=== PATIENT | male | born 1955 ===

== ENCOUNTER 2024-04-02 13:04 | Outpatient (AMB) | payer MEDICARE, MEDICAID, SELFPAY ==
--- NOTE | 2024-04-02 13:08 | MHC.PC.OV ---
Vital Signs 04/02/24 13:20 Height 5 ft 8.58 in Weight 253 lb 8 oz BMI 37.9 BP 138/78 Blood Pressure Location Lt brachial Position Sitting Respiration 16 Pulse 79 Pulse Source Pulse Oximeter Temp 98.4 F Temp Source Oral Pulse Oximetry (%) 96 Oxygen Delivery Method Room Air Intake Visit Reasons: [employer]PER[employer]OR - Prostate med f/u Intake Note: New patient visit. Has been short of breath. Hematologist Oncologist Required: No Allergies No Known Allergies Allergy (Verified 04/02/24 13:14) Medication List - Last Reconciled 04/02/24 by Catherine Nolasco PA-C atorvastatin 40 mg PO DAILY hydrochlorothiazide 12.5 mg PO DAILY omeprazole 40 mg PO DAILY tamsulosin 0.4 mg PO DAILY Tobacco use date assessed: 04/02/24 Fall risk assessment: No Falls in past year Last assessed Fall Risk: 04/02/24 Dental Screening Dental Screen Date: 04/02/24 Did you have a dental visit in the last 12 months?: Yes Did you have a dental problem in the last 6 months where you did not have access to dental care?: Yes Was dental information given to patient?: 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 Moved here last year from [place]. CV: Blood pressure today in the office is 138/78. Is on hydrochlorothiazide 12.5 mg daily. Cholesterol he states it is controlled with 40 mg of atorvastatin. Does not know what his last LDL was. Uro: On Flomax 0.4 mg nightly. Control symptoms Psych: He does not like taking the full dose of trazodone as it makes him feel funny . GI: GERD is usually controlled with the omeprazole 40 mg. It is not believe he has ever had an endoscopy. Does get breakthrough symptoms at times. He states that at 1 point about 10 years ago he was told he had a problem with his liver and sister thinks it was related to hep C. he thinks he completed treatments. 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 He lived with his mother in [place] until recently when she last year. He is now living with his sister. Colonoscopy: sister thinks overdue PSA: overdue [facility] Medical History (Updated 04/02/24 @ 13:41 by Catherine Nolasco PA-C) Depression Anxiety Prostate troubles Liver disease Family History (Updated 04/02/24 @ 13:27 by Wendy Sebastian CMA) Mother HTN (hypertension) Mother High cholesterol Cardiovascular disease Other FH: mental illness Social History (Updated 04/02/24 @ 13:19 by Wendy Sebastian CMA) Housing: Apartment Patient Tobacco Use Status: Former Tobacco user Years Smoked: 19 e-Cigarette/Vaping Use: Never Used Second Hand Smoke Exposure: No service: No Current occupational status: disabled Cognitive needs: No Hearing needs: No Vision needs: Yes (glasses) Questionnaire PHQ-9 Over the last 2 weeks, how often have you been bothered by any of the following problems? 1. Little interest or pleasure in doing things: more than half the days 2. Feeling down, depressed, or hopeless: several days 3. Trouble falling or staying asleep, or sleeping too much: more than half the days 4. Feeling tired or having little energy: several days 5. Poor appetite or overeating: several days 6. Feeling bad about yourself - or that you are a failure or have let yourself or your family down: not at all 7. Trouble concentrating on things, such as reading the newspaper or watching television: not at all 8. Moving or speaking so slowly that other people could have noticed. Or the opposite - being so fidgety or restless that you have been moving around a lot more than usual: not at all 9. Thoughts that you would be better off or of hurting yourself in some way: not at all Total score: 7 Depression Screening Interpretation: Positive Depression Screening Follow-up: In treatment and Change in Medication Depression Screening Done: Yes 20212 - PHQ-9 Billing: Yes Source: Developed by Drs. Tye Larsen, Maria Dolores Singleton, Lester Caballero and colleagues, with an educational uriel from [employer]. Thrive Questionnaire Date Thrive assessed: 03/31/24 I am a: Parent/Caregiver What is your living situation today?: I have a steady place to live Within the past 12 months, did the food you bought not last and you didn't have the money to get more?: Never true Within the past 12 months, did you worry whether your food would run out before you got money to buy more?: Never true Do you have trouble paying for medicines?: I choose not to answer this question Do you have trouble getting transportation to medical appointments?: No Do you have trouble paying your heating and electricity bill?: I choose not to answer this question Do you have trouble taking care of your child, family member or friend?: I choose not to answer this question Do you have trouble with day-to-day activities such as bathing, preparing meals, shopping, managing finances, etc.?: Yes Are you currently unemployed and looking for a job?: I choose not to answer this question Are you interested in more education?: No Please select the resources that you would like help with: Housing/Long Term Currently or been in a relationship where the following occur: No concerns reported THRIVE Score: 0 AUDIT C Alcohol Use Questionnaire (AUDIT-C) 1. How often do you have a drink containing alcohol?: Monthly or less 2. How many drinks containing alcohol do you have on a typical day when you are drinking?: 1 or 2 3. How often do you have six or more drinks on one occasion?: Never Total Score: 1 CARLOS ALBERTO-7 AMB Questionnaire CARLOS ALBERTO-7 Date CARLOS ALBERTO - 7 assessed: 04/02/24 Feeling nervous, anxious, or on edge: 0 = Not at all Not being able to stop or control worryin = More than half the days Worrying too much about different things: 2 = More than half the days Trouble relaxin = Not at all Being so restless that it is hard to sit still: 0 = Not at all Becoming easily annoyed or irritable: 2 = More than half the days Feeling afraid as if something awful might happen: 0 = Not at all Total CARLOS ALBERTO-7 score (0-4 normal; 5-9 mild; 10-14 moderate; 15-21 severe): 6 Source: Developed by Drs. Tye Larsen, Maria Dolores Singleton, Lester Caballero and colleagues, with an educational uriel from [employer] CARLOS ALBERTO-7 Assessment Billing CARLOS ALBERTO-7 Assessment Tool: CARLOS ALBERTO-7 Assessment 50174 Physical exam (Primary Care) Vital Signs: Last Vital Signs Temp 98.4 F 10/10/24 13:20 Pulse 79 04/02/24 13:20 Resp 16 04/02/24 13:20 BP 138/78 04/02/24 13:20 Pulse Ox 96 04/02/24 13:20 Oxygen Delivery Method Room Air 04/02/24 13:20 BMI result Body Mass Index 37.9 Tobacco/Smoking Status: Tobacco use Status Tobacco use date assessed 04/02/24 04/02/24 13:11 Patient Tobacco Use Status Former Tobacco user 04/02/24 13:29 e-Cigarette/Vaping Use Never Used 04/02/24 13:19 PHQ-9: PHQ-9 Score PHQ-9: Total score 7 04/02/24 13:29 Depression Screening Interpretation: Positive Depression Screening Follow-up: In treatment and Change in Medication Thrive Assessment: Date of Thrive Assessment Date Thrive assessed 03/31/24 04/02/24 13:11 Currently or been in a relationship where the following occur: No concerns reported Const Orientation/consciousness: patient oriented x3 HENMT Ears: hearing grossly normal bilaterally Neck Thyroid: Thyroid normal Lymphatic: no lymphadenopathy noted Resp Auscultation: clear to auscultation bilaterally Cardio Rate: regular rate Rhythm: regular rhythm Heart sounds: S1 normal heart sound present and S2 normal heart sound present GI Inspection: Yes normal to inspection Palpation (GI): Soft to palpation and Other GI palpation findings present (nontender, no cva tenderness) Auscultation: normoactive bowel sounds Rectal Exam - Male: Yes deferred Skin General skin exam: no rashes or lesions noted Neuro General: patient oriented x3, gait normal and no focal motor deficits Coding Level of Care Code New Pt Level 4 (83222) Complex EM visit Add On G2211 Diagnoses Hypertension I10 Hyperlipidemia E78.5 Insomnia G47.00 BPH (benign prostatic hyperplasia) N40.0 GERD (gastroesophageal reflux disease) K21.9 Additional Codes CARLOS ALBERTO-7 Assessment Billing - CARLOS ALBERTO-7 Assessment Tool: CARLOS ALBERTO-7 Assessment 41137 ([id number]) Assessment & Plan Assessment & Plan (1) Hypertension: Code(s): I10 - Essential (primary) hypertension Category: Medical Plan: Refilled hydrochlorothiazide. Has been inconsistent with the medication as he was running out of the pills. (2) Hyperlipidemia: Code(s): E78.5 - Hyperlipidemia, unspecified Category: Medical Plan: Continue atorvastatin. Refilled today. LFTs and lipids ordered (3) Insomnia: Code(s): G47.00 - Insomnia, unspecified Category: Medical Plan: We will reduce dose trazodone. Short term follow up. (4) BPH (benign prostatic hyperplasia): Code(s): N40.0 - Benign prostatic hyperplasia without lower urinary tract symptoms Category: Medical Plan: Flomax ordered. (5) GERD (gastroesophageal reflux disease): Code(s): K21.9 - Gastro-esophageal reflux disease without esophagitis Category: Medical Plan: Continue omeprazole. Referral to GI. Plan They did sign for records today. We will review upon receiving. Orders: Orders Hemoglobin A1c Today E78.5 - Hyperlipidemia, unspecified, G47.00 - Insomnia, unspecified, I10 - Essential (primary) hypertension, N40.0 - Benign prostatic hyperplasia without lower urinary tract symptoms, Z86.19 - Personal history of other infectious and parasitic diseases TSH reflex Free T4 Today E78.5 - Hyperlipidemia, unspecified, G47.00 - Insomnia, unspecified, I10 - Essential (primary) hypertension, N40.0 - Benign prostatic hyperplasia without lower urinary tract symptoms, Z86.19 - Personal history of other infectious and parasitic diseases UA CC w/rflx Micro + Cult Today E78.5 - Hyperlipidemia, unspecified, G47.00 - Insomnia, unspecified, I10 - Essential (primary) hypertension, N40.0 - Benign prostatic hyperplasia without lower urinary tract symptoms, Z13.220 - Encounter for screening for lipoid disorders, Z86.19 - Personal history of other infectious and parasitic diseases Lipid Panel Today E78.5 - Hyperlipidemia, unspecified, G47.00 - Insomnia, unspecified, I10 - Essential (primary) hypertension, N40.0 - Benign prostatic hyperplasia without lower urinary tract symptoms, Z86.19 - Personal history of other infectious and parasitic diseases Prostate Specific Antigen Scr Today E78.5 - Hyperlipidemia, unspecified, G47.00 - Insomnia, unspecified, I10 - Essential (primary) hypertension, N40.0 - Benign prostatic hyperplasia without lower urinary tract symptoms, Z01.89 - Encounter for other specified special examinations, Z86.19 - Personal history of other infectious and parasitic diseases Complete Blood Count Auto Diff Today E78.5 - Hyperlipidemia, unspecified, G47.00 - Insomnia, unspecified, I10 - Essential (primary) hypertension, N40.0 - Benign prostatic hyperplasia without lower urinary tract symptoms, Z86.19 - Personal history of other infectious and parasitic diseases Comprehensive [place]. Panel Fast Today E78.5 - Hyperlipidemia, unspecified, G47.00 - Insomnia, unspecified, I10 - Essential (primary) hypertension, N40.0 - Benign prostatic hyperplasia without lower urinary tract symptoms, Z86.19 - Personal history of other infectious and parasitic diseases Referrals Gastroenterology Referral K21.9 - Gastro-esophageal reflux disease without esophagitis, Z12.11 - Encounter for screening for malignant neoplasm of colon, Z86.19 - Personal history of other infectious and parasitic diseases Medications: New atorvastatin 40 mg PO DAILY 90 tabs 3RF hydrochlorothiazide 12.5 mg PO DAILY 90 caps 3RF omeprazole 40 mg PO DAILY 90 caps 3RF tamsulosin 0.4 mg PO DAILY 90 caps 2RF trazodone 50 mg PO BEDTIME 90 tabs 0RF
[2024-04-02 13:20] VITALS: BP 138/78; PULSE 79; RESP 16; TEMP 36.9; O2SAT 96; BMI 37.9
== END 2024-04-02 13:48 | disposition home or self-care (01) ==
LOC: HO.HMCFM 13:04
PROVIDERS: PCP Physician Assistant; Visit Provider Physician Assistant
DX: I10 Essential (primary) hypertension (principal); E78.5 Hyperlipidemia, unspecified; G47.00 Insomnia, unspecified; N40.0 Benign prostatic hyperplasia without lower urinary tract symptoms; K21.9 Gastro-esophageal reflux disease without esophagitis

== ENCOUNTER → 2024-04-02 13:04 | Outpatient (BNVA) | payer MEDICARE, MEDICAID, SELFPAY | PROVIDERS: Visit Provider Physician Assistant | DX: I10 Essential (primary) hypertension (principal); N40.0 Benign prostatic hyperplasia without lower urinary tract symptoms; E78.5 Hyperlipidemia, unspecified; K21.9 Gastro-esophageal reflux disease without esophagitis; G47.00 Insomnia, unspecified | CPT/HCPCS: 96127; 99202 ==

== ENCOUNTER 2024-06-02 09:57 | Outpatient (REF) | payer MEDICARE, MEDICAID, SELFPAY ==
[2024-06-02 11:00] LABS: MANUAL DIFF FLAG NO
[2024-06-02 11:05] LABS: Basophils Percent Auto 0.1 % (0-2); Eosinophils Absolute Auto 0.1 X10*3/uL (0.0-0.4); Eosinophils Percent Auto 1.7 % (0-4); Hematocrit 36.9 % (42.0-52.0); Hemoglobin 11.9 g/dl (14.0-18.0); Imm Gran Abs Auto 0.01 X10*3/uL (0.00-0.03); Imm Gran Pct Auto 0.1 % (0.0-0.4); Lymphocytes Absolute Auto 2.8 X10*3/uL (1.2-4.9); Lymphocytes Percent Auto 38.8 % (20-40); Mean Corpuscular HGB Conc 32.2 g/dl (31.0-36.0); Mean Corpuscular Hemoglobin 26.9 pg (27.0-33.0); Mean Corpuscular Volume 83.5 fL (80.0-98.0); Mean Platelet Volume 10.1 fL (9.4-12.4); Monocytes Absolute Auto 0.5 X10*3/uL (0.1-1.2); Monocytes Percent Auto 7.1 % (2-11); Neutrophils Absolute Auto 3.7 x10*3/uL (2.0-8.3); Neutrophils Percent Auto 52.2 % (45-73); Platelet Count 194 X10*3/uL (160-400); Red Blood Count 4.42 X10*6/uL (4.60-5.80); Red Cell Distribution Width 14.6 % (11.0-16.0); White Blood Count 7.2 X10*3/uL (4.8-10.8)
[2024-06-02 11:08] LABS: Appearance Urine Clear; Color Urine Yellow; Glucose Urine UA Negative (Negative); Leukocyte Esterase Urine Negative (Negative); Nitrite Urine Negative (Negative); PH 5.5 (5.0-9.0); Specific Gravity - Urine 1.025 (1.005-1.025); Urine Blood Negative (Negative); Urine Ketones Negative (Negative); Urine Protein Trace mg/dL (Neg-Trace)
[2024-06-02 11:14] LABS: Estimated Average Glucose 143 mg/dL; Hemoglobin A1C 144.5471 umol/L; Hemoglobin A1c % 6.6 % (<6.0)
[2024-06-02 11:31] LABS: Alanine Aminotransferase 20 U/L (0-40); Alkaline Phosphatase 79 U/L (39-117); Anion Gap 12 (12-20); Aspartate Amino Transferase 21 U/L (5-37); Bilirubin Total 0.3 mg/dL (0.0-1.0); Blood Urea Nitrogen 18 mg/dL (9-16); Calcium 9.3 mg/dL (8.4-10.2); Carbon Dioxide 31 mmol/L (22-29); Chloride 101 mmol/L (96-108); Cholesterol 173 mg/dL (<200); Estimated Glomerular Filt Rate > 60; Glucose Fasting 105 mg/dL (60-99); HDL Cholesterol 30 mg/dL (>40); LDL Cholesterol Calculated 117 mg/dL (<100); Potassium 3.4 mmol/L (3.3-5.1); Sodium 141 mmol/L (135-145); Total Protein 8.5 g/dL (6.5-8.0); Triglycerides 134 mg/dL (<150)
[2024-06-02 11:34] LABS: TSH reflex Free T4 3.28 uIU/mL (0.32-4.0)
[2024-06-02 12:04] LABS: Prostate Specific Antigen Scr 0.54 ng/mL (<0.05-4.0)
== END 2024-06-02 09:58 | disposition home or self-care (01) ==
LOC: HO.10HDL 09:57
PROVIDERS: Visit Provider Physician Assistant
DX: Z13.220 Encounter for screening for lipoid disorders (principal); Z12.5 Encounter for screening for malignant neoplasm of prostate; Z13.1 Encounter for screening for diabetes mellitus; I10 Essential (primary) hypertension; E78.5 Hyperlipidemia, unspecified; G47.00 Insomnia, unspecified; N40.0 Benign prostatic hyperplasia without lower urinary tract symptoms; Z86.19 Personal history of other infectious and parasitic diseases
CPT/HCPCS: 36415; 80053; 80061; 81003; 83036; 84153; 84443; 85025

== ENCOUNTER 2024-06-04 14:59 | Outpatient (AMB) | payer MEDICARE, MEDICAID, SELFPAY ==
--- NOTE | 2024-06-04 15:12 | A.OFFPC_ITS ---
Vital Signs 06/04/24 15:19 06/04/24 15:23 Height 5 ft 8.58 in Weight 252 lb 6 oz BMI 37.7 BP 154/68 H 144/74 H Blood Pressure Location Lt brachial Lt brachial Position Sitting Sitting Pulse 98 Pulse Source Pulse Oximeter Pulse Oximetry (%) 98 Oxygen Delivery Method Room Air Intake Visit Reasons: 1 month fu // ricardo from 05/06 Intake Note: One month follow up Economic Historian Required: No Allergies No Known Allergies Allergy (Verified 06/04/24 15:19) Medication List - Last Reconciled 06/04/24 by Catherine Nolasco PA-C atorvastatin 40 mg PO DAILY omeprazole 40 mg PO DAILY tamsulosin 0.4 mg PO DAILY trazodone 50 mg PO BEDTIME Tobacco use date assessed: 04/02/24 Dental Screening Dental Screen Date: 04/02/24 HPI 1 month fu // ricardo from 05/06 HPI Details Patient is a 68-year-old male with a significant past medical history of intellectual delay, hypertension, hyperlipidemia, GERD, insomnia, depression with anxiety, history of hep C about 10 years ago and BPH presenting today for a follow up. Moved here last year from [place]. CV: Blood pressure today in the office is 144/78. Is on hydrochlorothiazide 12.5 mg daily. Cholesterol he states it is controlled with 40 mg of atorvastatin. His last LDL was a little elevated and states he was not fasting. He gets fatigued with walking short distances with chest pressure, and sob. He states he thinks he had a stress test in the past base not really sure His sister is here today with him and states that he definitely has sleep apnea. She has noticed some witnessed apneic events. He states that he remembers having a history of this and he used to use a mask when he was in [place] but can not tell me when this was. Endo: His A1c just came back at 6.6. He does feel thirsty a lot. He over eats. His nephew has type 1 diabetes and was just diagnosed at the age of 30. He is not sure how he feels about taking medication or picking his finger. Uro: On Flomax 0.4 mg nightly. Control symptoms Psych: Uses trazodone p.r.n. GI: GERD is usually controlled with the omeprazole 40 mg. It is not believe he has ever had an endoscopy. Does get breakthrough symptoms at times. He states that at 1 point about 10 years ago he was told he had a problem with his liver and sister thinks it was related to hep C. he thinks he completed treatments. 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 He lived with his mother in [place] until recently when she last year. He is now living with his sister. Colonoscopy: sister thinks overdue PSA: o up-to-date [facility] Medical History (Updated 06/04/24 @ 15:49 by Catherine Nolasco PA-C) Depression Anxiety Prostate troubles Liver disease Family History (Updated 04/02/24 @ 13:27 by Wendy Sebastian CMA) Mother HTN (hypertension) Mother High cholesterol Cardiovascular disease Other FH: mental illness Social History (Updated 04/02/24 @ 13:19 by Wendy Sebastian CMA) Housing: Apartment Patient Tobacco Use Status: Former Tobacco user Years Smoked: 19 e-Cigarette/Vaping Use: Never Used Second Hand Smoke Exposure: No service: No Current occupational status: disabled Cognitive needs: No Hearing needs: No Vision needs: Yes (glasses) Questionnaire PHQ-9 Over the last 2 weeks, how often have you been bothered by any of the following problems? 1. Little interest or pleasure in doing things: not at all 2. Feeling down, depressed, or hopeless: not at all 3. Trouble falling or staying asleep, or sleeping too much: not at all 4. Feeling tired or having little energy: not at all 5. Poor appetite or overeating: not at all 6. Feeling bad about yourself - or that you are a failure or have let yourself or your family down: not at all 7. Trouble concentrating on things, such as reading the newspaper or watching television: not at all 8. Moving or speaking so slowly that other people could have noticed. Or the opposite - being so fidgety or restless that you have been moving around a lot more than usual: several days 9. Thoughts that you would be better off or of hurting yourself in some way: not at all Total score: 1 Source: Developed by Drs. Tye Larsen, Maria Dolores Singleton, Lester Caballero and colleagues, with an educational uriel from [employer]. Thrive Questionnaire Date Thrive assessed: 03/31/24 I am a: Parent/Caregiver What is your living situation today?: I have a steady place to live Within the past 12 months, did the food you bought not last and you didn't have the money to get more?: Never true Within the past 12 months, did you worry whether your food would run out before you got money to buy more?: Never true Do you have trouble paying for medicines?: I choose not to answer this question Do you have trouble getting transportation to medical appointments?: No Do you have trouble paying your heating and electricity bill?: I choose not to answer this question Do you have trouble taking care of your child, family member or friend?: I choose not to answer this question Do you have trouble with day-to-day activities such as bathing, preparing meals, shopping, managing finances, etc.?: Yes Are you currently unemployed and looking for a job?: I choose not to answer this question Are you interested in more education?: No Please select the resources that you would like help with: Housing/Retirement Currently or been in a relationship where the following occur: No concerns reported THRIVE Score: 0 CARLOS ALBERTO-7 AMB Questionnaire CARLOS ALBERTO-7 Date CARLOS ALBERTO - 7 assessed: 04/02/24 Feeling nervous, anxious, or on edge: 0 = Not at all Not being able to stop or control worryin = Not at all Worrying too much about different things: 0 = Not at all Trouble relaxin = Not at all Being so restless that it is hard to sit still: 0 = Not at all Becoming easily annoyed or irritable: 0 = Not at all Feeling afraid as if something awful might happen: 0 = Not at all Total CARLOS ALBERTO-7 score (0-4 normal; 5-9 mild; 10-14 moderate; 15-21 severe): 0 Source: Developed by Drs. Tye Larsen, Maria Dolores Singleton, Lester Caballero and colleagues, with an educational uriel from [employer]. Physical exam (Primary Care) Vital Signs: Last Vital Signs Pulse 98 06/04/24 15:19 BP 144/74 H 06/04/24 15:23 Pulse Ox 98 06/04/24 15:19 Oxygen Delivery Method Room Air 06/04/24 15:19 BMI result Body Mass Index 37.7 Tobacco/Smoking Status: Tobacco use Status Tobacco use date assessed 04/02/24 06/04/24 15:15 Patient Tobacco Use Status Former Tobacco user 06/04/24 15:15 e-Cigarette/Vaping Use Never Used 06/04/24 15:15 PHQ-9: PHQ-9 Score PHQ-9: Total score 1 06/04/24 15:24 Thrive Assessment: Date of Thrive Assessment Date Thrive assessed 03/31/24 06/04/24 15:15 Currently or been in a relationship where the following occur: No concerns reported Const Orientation/consciousness: patient oriented x3 HENMT Ears: hearing grossly normal bilaterally Neck Thyroid: Thyroid normal Lymphatic: no lymphadenopathy noted Resp Auscultation: clear to auscultation bilaterally Cardio Rate: regular rate Rhythm: regular rhythm Heart sounds: S1 normal heart sound present and S2 normal heart sound present GI Inspection: Yes normal to inspection Palpation (GI): Soft to palpation and Other GI palpation findings present (nontender, no cva tenderness) Auscultation: normoactive bowel sounds Rectal Exam - Male: Yes deferred Skin General skin exam: no rashes or lesions noted Neuro General: patient oriented x3, gait normal and no focal motor deficits Office Procedures EKG Details: EKG today in the office is normal sinus rhythm at a rate of 90 beats per minute with nonspecific STT wave abnormalities. No prior study to compare. EKG interpreted by myself and Dr. Walters. [id number], Complete Results Reviewed Results Reviewed: Laboratory Tests 06/02/24 10:02 WBC 7.2 RBC 4.42 L Hgb 11.9 L Hct 36.9 L Plt Count 194 Sodium 141 Potassium 3.4 Chloride 101 Carbon Dioxide 31 H Anion Gap 12 BUN 18 H Creatinine 1.02 Estimated GFR > 60 Hemoglobin A1c % 6.6 H AST 21 ALT 20 Triglycerides 134 Cholesterol 173 LDL Cholesterol, Calc 117 H HDL Cholesterol 30 L PSA Screen 0.54 TSH 3.28 Coding Level of Care Code Est Pt Level 5 (82245) Complex EM visit Add On G2211 Diagnoses Hypertension I10 Hyperlipidemia E78.5 Anemia D64.9 Newly diagnosed diabetes E11.9 DUGGAN (dyspnea on exertion) R06.09 ALIDA (obstructive sleep apnea) G47.33 CPT Codes EKG - CPT: [id number], Complete ([id number]) Assessment & Plan Assessment & Plan (1) Hypertension: Code(s): I10 - Essential (primary) hypertension Category: Medical Plan: Blood pressure is elevated with hydrochlorothiazide. We will discontinue this and try lisinopril as he is a newly diagnosed diabetic as well. I will have him follow up in a couple weeks of his blood pressure rechecked. We reviewed risks and benefits and adverse effects of this medication. (2) Hyperlipidemia: Code(s): E78.5 - Hyperlipidemia, unspecified Category: Medical Plan: Continue atorvastatin (3) Anemia: Code(s): D64.9 - Anemia, unspecified Category: Medical Plan: Labs ordered. We will follow up pending test results. He also was referred for a colonoscopy (4) Newly diagnosed diabetes: Code(s): E11.9 - Type 2 diabetes mellitus without complications Category: Medical Plan: Testing supplies ordered Labs ordered. Referral to diabetic Education Spent more than 1 hour in [id number] time today discussing the pathophysiology of diabetes and difference between type 1 and type 2 diabetes. Reviewed signs and symptoms of hyper and hypoglycemia that would require emergent medical treatment. We will hold off on providing medication at this point. At our follow up we will further discuss this. We also did discuss going on a medication like a GLP 1 to help with his over eating. (5) DUGGAN (dyspnea on exertion): Code(s): R06.09 - Other forms of dyspnea Category: Medical Plan: EKG listed above. Echo ordered, stress test ordered, and chest x-ray ordered. (6) ALIDA (obstructive sleep apnea): Code(s): G47.33 - Obstructive sleep apnea (adult) (pediatric) Category: Medical Plan: Sleep study ordered. Referral to sleep Medicine. Orders: Orders C Peptide Today D64.9 - Anemia, unspecified, E11.9 - Type 2 diabetes mellitus without complications, E78.5 - Hyperlipidemia, unspecified, I10 - Essential (primary) hypertension Glutamic acid decarboxylase Ab Today D64.9 - Anemia, unspecified, E11.9 - Type 2 diabetes mellitus without complications, E78.5 - Hyperlipidemia, unspecified, I10 - Essential (primary) hypertension Islet Cell Antibody Scrn/Titer Today D64.9 - Anemia, unspecified, E11.9 - Type 2 diabetes mellitus without complications, E78.5 - Hyperlipidemia, unspecified, I10 - Essential (primary) hypertension Vitamin B12 and Folate Today D64.9 - Anemia, unspecified, E11.9 - Type 2 diabetes mellitus without complications, E78.5 - Hyperlipidemia, unspecified, I10 - Essential (primary) hypertension AMB EKG-In Office Today R06.09 - Other forms of dyspnea RT home sleep study Today E11.9 - Type 2 diabetes mellitus without complications, E78.5 - Hyperlipidemia, unspecified, G47.00 - Insomnia, unspecified, I10 - Essential (primary) hypertension, R06.09 - Other forms of dyspnea, R06.81 - Apnea, not elsewhere classified IRON PROFILE Today D64.9 - Anemia, unspecified, E11.9 - Type 2 diabetes mellitus without complications, E78.5 - Hyperlipidemia, unspecified, I10 - E ssential (primary) hypertension Ferritin Today D64.9 - Anemia, unspecified, E11.9 - Type 2 diabetes mellitus without complications, E78.5 - Hyperlipidemia, unspecified, I10 - Essential (primary) hypertension Complete Blood Count Auto Diff Today D64.9 - Anemia, unspecified, E11.9 - Type 2 diabetes mellitus without complications, E78.5 - Hyperlipidemia, unspecified, I10 - Essential (primary) hypertension XR chest 2V Today E11.9 - Type 2 diabetes mellitus without complications, E78.5 - Hyperlipidemia, unspecified, I10 - Essential (primary) hypertension, R06.09 - Other forms of dyspnea CA echo transthoracic complete Today E11.9 - Type 2 diabetes mellitus without complications, E78.5 - Hyperlipidemia, unspecified, G47.00 - Insomnia, unspecified, I10 - Essential (primary) hypertension, R06.09 - Other forms of dyspnea CA stress test Today E11.9 - Type 2 diabetes mellitus without complications, E78.5 - Hyperlipidemia, unspecified, G47.00 - Insomnia, unspecified, I10 - Essential (primary) hypertension, R06.09 - Other forms of dyspnea Referrals Diabetes Education Referral E11.9 - Type 2 diabetes mellitus without complications Sleep Medicine Referral G47.33 - Obstructive sleep apnea (adult) (pediatric) Medications: New lisinopril 10 mg PO DAILY 90 tabs 2RF blood sugar diagnostic (FreeStyle Lite Strips) Use daily As directed to check blood glucose 100 ea 3RF E11.9 - Type 2 diabetes mellitus without complications blood-glucose meter (FreeStyle Lite Meter kit) Use daily As directed to check blood sugars 1 ea 0RF E11.22 - Type 2 diabetes mellitus with diabetic chronic kidney disease, E11.9 - Type 2 diabetes mellitus without complications, Z79.4 - skilled nursing (current) use of insulin lancets (FreeStyle Lancets) use daily as directed to check blood glucose 100 ea 3RF
[2024-06-04 15:19] VITALS: BP 154/68; PULSE 98; O2SAT 98; BMI 37.7
[2024-06-04 15:23] VITALS: BP 144/74
== END 2024-06-04 16:06 | disposition home or self-care (01) ==
PROVIDERS: PCP Physician Assistant; Visit Provider Physician Assistant
DX: I10 Essential (primary) hypertension (principal); E11.9 Type 2 diabetes mellitus without complications; E78.5 Hyperlipidemia, unspecified; D64.9 Anemia, unspecified; R06.09 Other forms of dyspnea; G47.33 Obstructive sleep apnea (adult) (pediatric)

== ENCOUNTER → 2024-06-04 14:59 | Outpatient (BNVA) | payer MEDICARE, MEDICAID, SELFPAY | PROVIDERS: PCP Physician Assistant; Visit Provider Physician Assistant | DX: I10 Essential (primary) hypertension (principal); E78.5 Hyperlipidemia, unspecified; E11.9 Type 2 diabetes mellitus without complications; D64.9 Anemia, unspecified; R06.09 Other forms of dyspnea; G47.33 Obstructive sleep apnea (adult) (pediatric) | CPT/HCPCS: 93005; 96127; 99212 ==

== ENCOUNTER 2024-06-10 10:38 | Outpatient (AMB) | payer MEDICARE, MEDICAID, SELFPAY ==
--- NOTE | 2024-06-10 10:45 | A.OFFVIS_ITS ---
Vital Signs 06/10/24 10:47 Height 5 ft 8.58 in Weight 252 lb 8 oz BMI 37.7 BP 148/82 H Blood Pressure Location Rt brachial Position Sitting Pulse 92 Pulse Source Pulse Oximeter Pulse Oximetry (%) 94 Oxygen Delivery Method Room Air Intake Visit Reasons: 06/05 LVM+Let INP-ALIDA Intake Note: Pt presents to the office today for a new patient visit for ALIDA. Allergies No Known Allergies Allergy (Verified 06/10/24 10:45) HPI Comments Details: 68 year old male referred to us by PCP for evaluation of sleep apnea. He is accompanied by his sister and [employer] ADVANCED OPERATOR, he is on disability d/t Intellectual Disabilities. He has excessive daytime fatigue, yawning, falls asleep in front of the TV, diffiuclty falling asleep at night, stays awake all hours of the night. Bedtime is at midgnight and sometiems at 3-4am. He continues to snore very loudly, wakes himself up as he is gasping for air. He makes wheezing and grunting noises during wakefulness, when breathing normally and has difficulty with breathing when sitting up and laying down is followed by PCP. His memory is pretty good, diet is poor, eats many types of sweets or snacks, during the day and the night. We will have to repeat his A1c, per PCP. Hypertension is well managed on Lisinopril 10mg PO daily. Vision checked on Mar 2024, he wears glasses, has Exotropia L. eye >R. Dizziness when he does not take his medication, and falls, difficulty walking, tends to bump into many things. Mood is anxious, concerned, fearful since his mom , he thinks he will also in his sleep. He has A/V Hallucinations, sister is not concerned. Does not smoke, alcohol on occasions. [facility] Medical History (Updated 06/10/24 @ 12:08 by Essence Barros PA-C) Depression Anxiety Prostate troubles Liver disease Family History Mother HTN (hypertension) Mother High cholesterol Cardiovascular disease Other FH: mental illness Social History Housing: Apartment Patient Tobacco Use Status: Former Tobacco user Years Smoked: 19 e-Cigarette/Vaping Use: Never Used Second Hand Smoke Exposure: No service: No Current occupational status: disabled Cognitive needs: No Hearing needs: No Vision needs: Yes (glasses) Review of Systems Const All systems reviewed & are unremarkable except as noted in HPI and below Physical Exam Vital Signs: Last Vital Signs Pulse 92 06/10/24 10:47 BP 148/82 H 06/10/24 10:47 Pulse Ox 94 06/10/24 10:47 Oxygen Delivery Method Room Air 06/10/24 10:47 BMI result Body Mass Index 37.7 Const General: cooperative, comfortable and no acute distress Nutritional Appearance: average body habitus and obese (BMI 38) Orientation/consciousness: patient oriented x3 HEENT Face and sinus: Yes face symmetric Mouth: tongue normal Teeth and gingiva: other ([place] Score of 4 ) Eyes Alignment and Position: position abnormal (R. eye / L. eye exotropia ) Pupils: Equal, round and reactive pupils present Neck Neck: Yes full ROM and Yes supple Resp Effort & Inspection: normal respiratory effort, able to speak in complete sentences, audible wheezes and grunting Neuro General: patient oriented x3 and moves all extremities Cranial nerves: Yes CN's II-XII intact bilaterally, Yes Equal, round and reactive pupils present, Yes Normal accommodation reflex present, Yes Bilaterally intact EOM present, Yes Normal facial strength present, Yes Midline tongue present, Yes Ability to bilaterally rotate head present and Yes Ability to bilaterally elevate shoulders present Motor exam (neuro): 5/5 motor strength present throughout and Normal motor muscle tone present throughout Deep tendon reflexes (DTR's): Right triceps reflex intensity grade: 2+, Left triceps reflex intensity grade: 2+, Rt Biceps (C5, C6): 2+, Left biceps reflex intensity grade: 2+, Right brachioradialis reflex intensity grade: 2+, Left brachioradialis reflex intensity grade: 2+, Right patellar reflex intensity grade: 2+ and Left patellar reflex intensity grade: 2+ Coordination: [id number] test normal and rapid alternating movements of the distal upper extremity normal Psych Appearance: well kempt Speech and movement: Normal speech and movement present and Restless speech present Affect: Anxious affect present Attitude: cooperative Thought process: Impoverished thought process present Thought content: Normal thought content present Insight: Fair insight present (Psych) Judgement: Fair judgement present (Psych) Results Reviewed Results Reviewed: PCP Internal Medicine Note Assessment & Plan Assessment & Plan (1) History of difficulty sleeping: Code(s): Z72.821 - Inadequate sleep hygiene Category: Medical (2) DUGGAN (dyspnea on exertion): Code(s): R06.09 - Other forms of dyspnea Category: Medical (3) Insomnia: Code(s): G47.00 - Insomnia, unspecified Category: Medical Qualifiers: Insomnia type: unspecified Qualified Code(s): G47.00 - Insomnia, unspecified (4) Hypertension: Code(s): I10 - Essential (primary) hypertension Category: Medical Plan Will send him to complete Home Sleep Study and evaluate for Sleep Apnea. Patient Education: Diabetes will monitor, encourage him to eat more fruits and vegetables to help with A1c. Look into DASH Diet, number one modifiable risk in Cardiovascular disease is Hypertension, good BP controll is arora. Follow up with Sleep and Neuro in 3 months once you have completed the HST, we will take next steps to monitor with CPAP, as needed. Orders: Orders RT home sleep study Today I10 - Essential (primary) hypertension, R06.09 - Other forms of dyspnea, Z72.821 - Inadequate sleep hygiene Coding Level of Care Code New Pt Level 3 (06798) Diagnoses History of difficulty sleeping Z72.821 DUGGAN (dyspnea on exertion) R06.09 Insomnia, unspecified type G47.00 Insomnia type: unspecified Hypertension I10 Time Spent (min) 30 Comment Evaluation of sleep apnea Sleep Questionnaire Difficulty falling asleep: Yes Difficulty staying asleep?: No Number of arousals: 1x Snoring: Yes (loud while awake and when asleep) Witnessed apneas: Yes Gasping arousals: Yes Nocturia: No GERD: Yes Vivid dreams: Yes Acting out dreams: No Abnormal behavior in sleep: No Abnormal movements in sleep: No Morning headaches: No Excessive daytime sleepiness: No Daytime naps: Yes Restless legs: Yes Hallucinations: Yes Sleep paralysis: No Drop attacks: No Sleep Study: Yes (years ago) CPAP: No
[2024-06-10 10:47] VITALS: BP 148/82; PULSE 92; O2SAT 94; BMI 37.7
== END 2024-06-10 11:50 | disposition home or self-care (01) ==
PROVIDERS: PCP Physician Assistant; Visit Provider Physician Assistant Medical
DX: G47.00 Insomnia, unspecified (principal); R06.09 Other forms of dyspnea; I10 Essential (primary) hypertension
CPT/HCPCS: 99203

== ENCOUNTER → 2024-06-10 10:38 | Outpatient (BNVA) | payer MEDICARE, MEDICAID, SELFPAY | PROVIDERS: PCP Physician Assistant; Visit Provider Physician Assistant Medical | DX: R06.09 Other forms of dyspnea (principal); G47.00 Insomnia, unspecified; I10 Essential (primary) hypertension; Z72.821 Inadequate sleep hygiene | CPT/HCPCS: 99202 ==

== ENCOUNTER → 2024-07-06 09:15 | Outpatient (REF) | payer MEDICARE, MEDICAID, SELFPAY ==
--- NOTE | 2024-07-06 09:18 | CA_ITS ---
Acquisition Time: 2024-07-06 10:33:38 Total Exercise Time: 00:05:00 Test Indications: CHEST PAIN Medications: Protocol: JEFE Max HR: 144 BPM 95% of Pred: 151 BPM Max BP: 158/60 mmHG Max Work Load: 5.0 METS Exercise Stress Test with exercise 5 mins of Jefe Protocol held at Stage 1, increased icline to 12% at 3 min, achieving 95% MPHR, with moderate SOB, no chest discomfort, without any arrythmias, with normotensive response to exercise. With T wave inversions in lead III during recovery. In recovery, breathing returned to baseline. Recommend further testing with nuclear imaging.Test reviewed with Dr. Felipe. Referred By: Catherine Nolasco Electronically Signed By: Fred Randolph
--- NOTE | 2024-07-06 09:18 | CA_ITS ---
Transthoracic Echocardiogram Patient (Last, First, Middle): Dilan Frias, Gender: Male Date of : 1955 Age: 68 Procedure Date: 07/06/2024 Procedure Type: Transthoracic Echocardiogram Location: OP Height: 172.72 cm Weight: 114.31 kg BSA: 2.25 m2 Heart Rate: bpm BP: 148 / 82 mmHg Hydrometallurgical Engineer: DEREK Referring MD: Catherine Nolasco PA-C Symptoms: R06.09 - Other forms of dyspnea Study Quality: Fair, contrast ECG Rhythm: Sinus Conclusions: - The left ventricular systolic function is normal. The calculated ejection fraction is 62% by biplane method. - No obvious valvular pathology seen on this study. Findings Procedure Information Contrast agent, definity, is being given per protocol without apparent complications. Left Ventricle Normal left ventricular cavity size. There is normal left ventricular wall thickness. The left ventricular systolic function is normal. The calculated ejection fraction is 62% by biplane method. There is no evidence of regional wall motion abnormalities. Diastolic function is normal for age. Right Ventricle Normal right ventricular cavity size and systolic function. Atria Both atria are normal in size. Aortic Valve There is a normal trileaflet aortic valve. There is no aortic valve stenosis. There is trace (trivial) aortic valve regurgitation. Mitral Valve The mitral valve appears normal. There is no mitral valve regurgitation. There is no mitral valve stenosis. Pulmonic Valve The pulmonic valve is likely normal. Tricuspid Valve There is trace tricuspid valve regurgitation. Tricuspid regurgitation envelope is inadequate for calculation of right ventricular systolic pressure. Great Vessels The asc aorta is normal in size. Venous The inferior vena cava was not well visualized. Pericardium/Pleural There is no evidence of pericardial effusion. Prior Study Comparison No prior study available for comparison. Recommendations, Care & Conclusions No obvious valvular pathology seen on this study. Measurements 2D Linear Measurements IVSd: 0.99 0.6-0.9/0.6-1.0 cm LVIDd: 4.63 3.9-5.3/4.2-5.9 cm LVIDd Index: 2.06 2.4-3.2/2.2-3.1 cm/m2 LVIDs: 2.79 2.0-3.6 cm LVPWd: 0.89 0.7-1.1 cm LA Diam: 3.50 2.7-3.8/3.0-4.0 cm LAIDs Index: 1.56 1.5-2.3 cm/m2 LV Mass: 183.97 67-162/88-224 g LV Mass Index: 81.77 43-95/49-115 g/m2 LVOT Diam: 2.00 3.0+(-)1.3 cm 2D Systolic Function EF 4C: 60.40 >55% EF 2C: 61.70 >55% EF BiP: 61.50 >55% Mitral Valve MV Pk E: 0.69 MV PK A: 0.84 MV Decel Time: 222.00 E/A: 0.80 E'Lateral: 10.10 E'Medial: 6.96 E/E' Med: 9.90 E/E' Lat: 6.80 PHT: 65.00 MVA PHT: 3.38 Decel Wells: 3.11 Aortic Valve AoV Pk Raúl: 1.45 AoV Mn Raúl: 1.05 AoV VTI: 0.33 AoV Pk Grad: 8.00 Aov Mn Grad: 5.00 MANDO Cont.VTI: 2.32 LVOT LVOT Pk Raúl: 1.13 LVOT Mn Raúl: 0.73 LVOT VTI: 0.25 LVOT Pk Grad: 5.00 LVOT Mn Grad: 2.00 LVOT Diam: 2.00 LVOT Area: 3.14 Diastolic Function MV Pk E: 0.69 MV Pk A: 0.84 E/A: 0.80 E'Medial: 6.96 E/E' Med: 9.90 E' Laterial: 10.10 E/E' Lat: 6.80 Right Ventricle TAPSE (mm): 23.10 TVS' Raúl: 11.30 Great Vessels Aorta Sinus of Valsalva: 3.41 2.0-3.[address] Ridge: 2.81 1.7-3.4 cm Ao Asc: 3.60 2.1-3.4 cm Updated in Other Vendor System with Status of Final Daron Herr MD electronically signed on 07/06/2024 2:36:15 PM with status of Final
== END ==
LOC: HO.CARD 09:15
PROVIDERS: PCP Physician Assistant; Visit Provider Physician Assistant
DX: R06.09 Other forms of dyspnea (principal); I10 Essential (primary) hypertension; G47.00 Insomnia, unspecified; E78.5 Hyperlipidemia, unspecified; E11.9 Type 2 diabetes mellitus without complications
CPT/HCPCS: 93017; 93306; Q9957

== ENCOUNTER → 2024-07-06 09:18 | Outpatient (BNV) | payer MEDICARE, MEDICAID, SELFPAY | PROVIDERS: PCP Physician Assistant | DX: I35.1 Nonrheumatic aortic (valve) insufficiency (principal); R06.09 Other forms of dyspnea | CPT/HCPCS: 93016; 93018; 93320; 93350; 93352 ==

== ENCOUNTER 2024-07-09 12:23 | Outpatient (AMB) | payer MEDICARE, MEDICAID, SELFPAY ==
--- NOTE | 2024-07-09 13:01 | A.OFFVIS_ITS ---
Intake Intake Visit Reasons: Type 2 diabetes Allergies No Known Allergies Allergy (Verified 06/10/24 10:45) HPI Comprehensive Diabetes Asmnt Most Recent Diabetes Results: Cholesterol 173 mg/dL (<200) 06/02/24 HDL Cholesterol 30 mg/dL (>40) L 06/02/24 Triglycerides 134 mg/dL (<150) 06/02/24 Creatinine 1.02 mg/dL (0.5-1.4) 06/02/24 Blood Urea Nitrogen 18 mg/dL (9-16) H 06/02/24 Sodium 141 mmol/L (135-145) 06/02/24 Potassium 3.4 mmol/L (3.3-5.1) 06/02/24 Chloride 101 mmol/L (96-108) 06/02/24 Carbon Dioxide 31 mmol/L (22-29) H 06/02/24 Calcium 9.3 mg/dL (8.4-10.2) 06/02/24 AST 21 U/L (5-37) 06/02/24 ALT 20 U/L (0-40) 06/02/24 Total Protein 8.5 g/dL (6.5-8.0) H 06/02/24 Albumin 4.0 g/dL (3.5-5.0) 06/02/24 PFSH Medical History Depression Anxiety Prostate troubles Liver disease Family History Mother HTN (hypertension) Mother High cholesterol Cardiovascular disease Other FH: mental illness Social History Housing: Apartment Patient Tobacco Use Status: Former Tobacco user Years Smoked: 19 e-Cigarette/Vaping Use: Never Used Second Hand Smoke Exposure: No service: No Current occupational status: disabled Cognitive needs: No Hearing needs: No Vision needs: Yes (glasses) Assessment & Plan Assessment & Plan (1) Newly diagnosed diabetes: Code(s): E11.9 - Type 2 diabetes mellitus without complications Plan: Learning objectives: The patient was provided with verbal and written education on the following topics as outlined below. The patient met all learning objectives and was able to verbalize understanding and provide teach back of education topics discussed . The patient was provided with the opportunity to ask questions and all questions were answered. Patient Assessment Assess patient education level/literacy/barriers, patient has developmental delay. At Diabetes Education visit with his sister who is his main business relationship manager. She prepares patient's meals and does the food shopping for the household. Patient questions/concerns patient is newly diagnosed with diabetes, with an A1c of 6.6% on 06/02/2024 He is not currently taking diabetes medications, he has not started testing glucose levels with a glucometer What is Diabetes? Pathophysiology How the body produces and uses insulin Identify type of DM Risk factors Signs of Diabetes Brief overview of Diabetes Management Monitoring blood sugar Following a meal plan Regular exercise Maintaining a healthy weight Taking medication as needed Members of the care team (PCP, RN, MA, RD, CDE, aircraft structural fitter) Blood glucose monitoring When/how often to test Target blood sugar ranges Introduction to Nutrition Importance of healthy diet in managing DM Diet is personalized to individual preference Review patient?s regular diet/food preferences Who prepares meals/does food shopping/ Dining out?/ Barriers? How diet effects glucose Eating 3 balanced meals a day with small, healthy snacks between meals Review food groups Carbohydrates: What is a carbohydrate/Which food/food groups are considered carb ohydrates Effect of carbohydrates on blood glucose Portion sizes Reading food labels Basic carb counting (if applicable per nursing assessment) Plate method Meal planning Recommendations: Follow plate method, consistent carbs and read nutritional labels. Smart Goal: Patient will identify foods in his current meal plan that contain carbohydrate Educational Materials: The patient was provided with the following written educational materials: Planning Healthy Meals Handout Patient Response to instructions: Comprehension of Instructions: Fair Readiness to make changes: Pre-Contemplation How confident they feel about making changes: fair Portions of this note were created using voice recognition software, please excuse any words or phrases that may have been misinterpreted. Patient Instructions: Include regular daily activity. ADA recommends 30 minutes of exercise 5 days a week. Weight loss talk to PCP or Nurse Companion before starting new plan. Test blood sugar as directed; Fasting and 2hpp largest meal. Watch trends in results. Utilize results and to assess how food, physical activity and medications affect blood sugar results. Bring glucometer or CGM to next visit. Be knowledgeable about diabetes medication, its action, side effects, efficacy, toxicity, prescribed dosage, appropriate timing and frequency of administration, effect of missed and delayed doses and instructions for storage, travel and safety. Problem solving techniques to monitor hypo/hyperglycemia episodes and treatments. Reduce risk reduction behaviors, smoking cessation, regular eye, foot and dental examinations. Coding Level of Care Code Est Pt Level 1 (61364) Diagnoses Newly diagnosed diabetes E11.9
== END 2024-07-09 13:03 | disposition home or self-care (01) ==
PROVIDERS: PCP Physician Assistant; Visit Provider Registered Nurse Diabetes Educator
DX: E11.9 Type 2 diabetes mellitus without complications (principal)

== ENCOUNTER → 2024-07-09 12:23 | Outpatient (BNVA) | payer MEDICARE, MEDICAID, SELFPAY | PROVIDERS: PCP Physician Assistant; Visit Provider Registered Nurse Diabetes Educator | DX: E11.9 Type 2 diabetes mellitus without complications (principal) | CPT/HCPCS: 99211 ==

== ENCOUNTER → 2024-07-16 13:04 | Outpatient (REF) | payer MEDICARE, MEDICAID, SELFPAY | LOC: HO.SL 13:04 | PROVIDERS: PCP Physician Assistant; Visit Provider Physician Assistant Medical | DX: Z72.821 Inadequate sleep hygiene (principal); R06.09 Other forms of dyspnea; I10 Essential (primary) hypertension; R06.81 Apnea, not elsewhere classified; R06.83 Snoring; E11.9 Type 2 diabetes mellitus without complications | CPT/HCPCS: 95806 ==

== ENCOUNTER → 2024-07-16 13:49 | Outpatient (BNV) | payer MEDICARE, MEDICAID, SELFPAY | PROVIDERS: PCP Physician Assistant; Visit Provider Internal Medicine | DX: R06.83 Snoring (principal); R40.0 Somnolence | CPT/HCPCS: 95806 ==

== ENCOUNTER 2024-07-22 11:06 | Outpatient (AMB) | payer MEDICARE, MEDICAID, SELFPAY ==
--- NOTE | 2024-07-22 11:05 | A.OFFPC_ITS ---
Vital Signs 07/22/24 11:07 Height 5 ft 8.5 in Weight 253 lb 6 oz BMI 38.0 BP 126/58 L Blood Pressure Location Rt brachial Position Sitting Pulse 97 Pulse Source Pulse Oximeter Pulse Oximetry (%) 95 Oxygen Delivery Method Room Air Intake Visit Reasons: BP Check - Rescheduled Intake Note: Blood pressure follow up Allergies No Known Allergies Allergy (Verified 07/22/24 11:05) Tobacco use date assessed: 04/02/24 Dental Screening Dental Screen Date: 04/02/24 HPI BP Check - Rescheduled HPI Details Patient is a 68-year-old male with a significant past medical history of intellectual delay, hypertension, hyperlipidemia, GERD, insomnia, depression with anxiety, history of hep C about 10 years ago and BPH presenting today for a follow up. CV: Blood pressure today in the office is 126/58. He was recently started on lisinopril 10 mg.. Cholesterol he states it is controlled with 40 mg of atorvastatin. His last LDL was a little elevated and states he was not fasting. He gets fatigued with walking short distances with chest pressure, and sob. He recently had an abnormal stress test and a nuclear one was ordered. Has follow up arranged Cardiology. Pulm: following with sleep med for juan Endo: His A1c recently came back at 6.6. He does feel thirsty a lot. He over eats. His nephew has type 1 diabetes and was just diagnosed at the age of 30. He is not sure how he feels about taking medication or picking his finger. He has not yet picked up a glucometer due to insurance issues. Patient's sister states that he still over eats and she is worried that his diabetes is going to progress. Open to starting medication. Uro: On Flomax 0.4 mg nightly. Control symptoms Psych: Uses trazodone p.r.n. GI: GERD is usually controlled with the omeprazole 40 mg. It is not believe he has ever had an endoscopy. Does get breakthrough symptoms at times. He states that at 1 point about 10 years ago he was told he had a problem with his liver and sister thinks it was related to hep C. he thinks he completed treatments. 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 He lived with his mother in [place] until recently when she last year. He is now living with his sister. has gi apointment 08/21 Heme/onc: was supposed to get labs prior to this appointment and forgot Colonoscopy: was referred at last visit seeing them 08/21 PSA: up-to-date Former smoker: smoked 18- 21 years old. States that he was only a social smoker for a few years. [facility] Medical History Depression Anxiety Prostate troubles Liver disease Family History Mother HTN (hypertension) Mother High cholesterol Cardiovascular disease Other FH: mental illness Social History (Updated 07/22/24 @ 11:06 by Wendy Sebastian CMA) Housing: Apartment Alcohol intake: current Comment: Holidays Patient Tobacco Use Status: Former Tobacco user Years Smoked: 19 e-Cigarette/Vaping Use: Never Used Second Hand Smoke Exposure: No Substance Use Type: Former Substance User service: No Current occupational status: disabled Cognitive needs: No Hearing needs: No Vision needs: Yes (glasses) Questionnaire Thrive Questionnaire Date Thrive assessed: 07/01/24 I am a: Patient What is your living situation today?: I have a steady place to live Within the past 12 months, did the food you bought not last and you didn't have the money to get more?: Never true Within the past 12 months, did you worry whether your food would run out before you got money to buy more?: Never true Do you have trouble paying for medicines?: No Do you have trouble getting transportation to medical appointments?: No Do you have trouble paying your heating and electricity bill?: No Do you have trouble taking care of your child, family member or friend?: I choose not to answer this question Do you have trouble with day-to-day activities such as bathing, preparing meals, shopping, managing finances, etc.?: Yes Are you currently unemployed and looking for a job?: No Are you interested in more education?: No Please select the resources that you would like help with: Housing/Intermediate Currently or been in a relationship where the following occur: No concerns reported THRIVE Score: 0 CARLOS ALBERTO-7 AMB Questionnaire CARLOS ALBERTO-7 Date CARLOS ALBERTO - 7 assessed: 04/02/24 Source: Developed by Drs. Tye L. SuzieMaria Dolores fitzgerald, Lester Caballero and colleagues, with an educational uriel from [employer]. Physical exam (Primary Care) Vital Signs: Last Vital Signs Pulse 97 07/22/24 11:07 BP 126/58 L 07/22/24 11:07 Pulse Ox 95 07/22/24 11:07 Oxygen Delivery Method Room Air 07/22/24 11:07 BMI result Body Mass Index 38.0 Tobacco/Smoking Status: Tobacco use Status Tobacco use date assessed 04/02/24 07/22/24 11:10 Patient Tobacco Use Status Former Tobacco user 07/22/24 11:10 e-Cigarette/Vaping Use Never Used 07/22/24 11:10 Thrive Assessment: Date of Thrive Assessment Date Thrive assessed 07/01/24 07/22/24 11:10 Currently or been in a relationship where the following occur: No concerns reported Const Orientation/consciousness: patient oriented x3 HENMT Ears: hearing grossly normal bilaterally Neck Thyroid: Thyroid normal Lymphatic: no lymphadenopathy noted Resp Auscultation: clear to auscultation bilaterally Cardio Rate: regular rate Rhythm: regular rhythm Heart sounds: S1 normal heart sound present and S2 normal heart sound present GI Inspection: Yes normal to inspection Palpation (GI): Soft to palpation and Other GI palpation findings present (nontender, no cva tenderness) Auscultation: normoactive bowel sounds Rectal Exam - Male: Yes deferred Skin General skin exam: no rashes or lesions noted Neuro General: patient oriented x3, gait normal and no focal motor deficits Results Reviewed Results Reviewed: Laboratory Tests 06/02/24 10:02 Sodium 141 Potassium 3.4 Chloride 101 Carbon Dioxide 31 H Anion Gap 12 BUN 18 H Creatinine 1.02 Estimated GFR > 60 Estimat Average Glucose 143 Hemoglobin A1c % 6.6 H AST 21 ALT 20 Alkaline Phosphatase 79 Total Protein 8.5 H Albumin 4.0 Cholesterol 173 LDL Cholesterol, Calc 117 H PSA Screen 0.54 TSH 3.28 Urine Color Yellow Urine Appearance Clear Urine pH 5.5 Ur Specific [place] 1.025 Urine Protein Trace Urine Glucose (UA) Negative Urine Ketones Negative Urine Blood Negative Urine Nitrite Negative Ur Leukocyte Esterase Negative Exercise Stress Test with exercise 5 mins of Javi Protocol held at Stage 1, increased icline to 12% at 3 min, achieving 95% MPHR, with moderate SOB, no chest discomfort, without any arrythmias, with normotensive response to exercise. With T wave inversions in lead III during recovery. In recovery, breathing returned to baseline. Recommend further testing with nuclear imaging.Test reviewed with Dr. Felipe. Conclusions: - The left ventricular systolic function is normal. The calculated ejection fraction is 62% by biplane method. - No obvious valvular pathology seen on this study. Coding Level of Care Code Est Pt Level 4 (57052) Complex EM visit Add On G2211 Diagnoses Hypertension I10 Hyperlipidemia E78.5 Anemia D64.9 Newly diagnosed diabetes E11.9 Assessment & Plan Assessment & Plan (1) Hypertension: Code(s): I10 - Essential (primary) hypertension Category: Medical Plan: Continue current regimen (2) Hyperlipidemia: Code(s): E78.5 - Hyperlipidemia, unspecified Category: Medical Plan: We will check lipids fasting. Did discuss that his LDL goal is lower. (3) Anemia: Code(s): D64.9 - Anemia, unspecified Category: Medical Plan: Reminded him to complete labs. I did reorder the studies. (4) Newly diagnosed diabetes: Code(s): E11.9 - Type 2 diabetes mellitus without complications Category: Medical Plan: We will monitor closely. Did go for diabetic Education. We will start metformin. Discussed risks and benefits and adverse effects of this medication. Reordered testing supplies. Orders: Orders Comprehensive Met. Panel Today D64.9 - Anemia, unspecified, E11.9 - Type 2 diabetes mellitus without complications, E78.5 - Hyperlipidemia, unspecified, I10 - Essential (primary) hypertension Complete Blood Count Auto Diff Today D64.9 - Anemia, unspecified, E11.9 - Type 2 diabetes mellitus without complications, E78.5 - Hyperlipidemia, unspecified, I10 - Essential (primary) hypertension Ferritin Today D64.9 - Anemia, unspecified, E11.9 - Type 2 diabetes mellitus without complications, E78.5 - Hyperlipidemia, unspecified, I10 - Essential (primary) hypertension IRON PROFILE Today D64.9 - Anemia, unspecified, E11.9 - Type 2 diabetes mellitus without complications, E78.5 - Hyperlipidemia, unspecified, I10 - Essential (primary) hypertension Vitamin B12 and Folate Today D64.9 - Anemia, unspecified, E11.9 - Type 2 diabetes mellitus without complications, E78.5 - Hyperlipidemia, unspecified, I10 - Essential (primary) hypertension Hemoglobin A1c Today D64.9 - Anemia, unspecified, E11.9 - Type 2 diabetes mellitus without complications, E78.5 - Hyperlipidemia, unspecified, I10 - Essential (primary) hypertension, R73.01 - Impaired fasting glucose Lipid Panel Today E78.5 - Hyperlipidemia, unspecified Medications: New blood-glucose meter (OneTouch Ultra2 Meter) Use daily As directed to monitor blood sugars. 1 ea 0RF lancets (OneTouch UltraSoft 2 Lancet) use daily As directed to monitor blood sugars 100 ea 2RF blood sugar diagnostic (OneTouch Ultra Test strips) Use BID As directed to monitor blood glucose 100 ea 3RF metformin ER 500 mg PO DAILY 90 tabs 2RF Discontinued blood sugar diagnostic (FreeStyle Lite Strips) Discontinued Reason: Change Referral Type Use daily As directed to check blood glucose 100 ea 3RF E11.9 - Type 2 diabetes mellitus without complications blood-glucose meter (FreeStyle Lite Meter kit) Discontinued Reason: Doctor's Order Use daily As directed to check blood sugars 1 ea 0RF E11.22 - Type 2 diabetes mellitus with diabetic chronic kidney disease, E11.9 - Type 2 diabetes mellitus without complications, Z79.4 - retirement (current) use of insulin lancets (FreeStyle Lancets) Discontinued Reason: Doctor's Order use daily as directed to check blood glucose 100 ea 3RF
[2024-07-22 11:07] VITALS: BP 126/58; PULSE 97; O2SAT 95; BMI 38.0
--- OUTSIDE RECORDS SUMMARY | 2024-07-22 13:22 | XMS_ITS | Clinical Summary ---
Author Organization [employer] Address [address] [place] [address] Care Team Providers Care Electrophysiology Technologist Name Role Phone Unavailable Primary Care Provider Unavailabl e Social History Tobacco Use Types Packs/Day Years Used Date Smoking Tobacco: Never Assessed Sex and Gender Information Value Date Recorded Sex Assigned at Male 02/27/2024 9:35 AM EDT Legal Sex Male 9:33 AM EDT Gender Identity Male 02/27/2024 9:35 AM EDT Sexual Orientation Not on file Plan of Treatment Health Maintenance Due Date Last Done Comments CT Colonography 1954 Colonoscopy 1954 Colorectal Cancer Screening 1954 Depression Screening 1954 FIT DNA/Cologuard 1954 FIT 1954 FOBT 1954 Lipid Panel 1954 SDOH Screening 1954 Sigmoidoscopy 1954 Alcohol/Substance Use Screening 1966 Tobacco Screening 1966 Hepatitis C Screening 1972 DTaP/Tdap/Td Vaccines (1 - Tdap) 1973 Zoster Vaccines (1 of 2) 2004 Pneumococcal Vaccine: 50+ Ye ars (1 of 1 - PCV) 12/31/2019 COVID-19 Vaccine ( - 2023-2 5 season) 2024 Influenza Vaccine (#1) 2024 RSV Patients and Pa tients Aged 60 years or older (1 - 1-dose 75+ series) 2029 HIB Vaccines Aged Out No longer eligi ble based on patient's age to complete this topic HPV Vaccines Aged Out No longer eligi ble based on patient's age to complete this topic Hepatitis A Vaccines Aged Out No long er eligible based on patient's age to complete this topic Hepatitis B Vaccines Aged Out No long er eligible based on patient's age to complete this topic IPV Vaccines Aged Out No longer eligi ble based on patient's age to complete this topic Meningococcal Vaccine Aged Out No beatriz kellie eligible based on patient's age to complete this topic RSV under 20 months Aged Out No longe r eligible based on patient's age to complete this topic Rotavirus Vaccines Aged Out No longer eligible based on patient's age to complete this topic Insurance [facility] STANDARD
== END 2024-07-22 11:39 | disposition home or self-care (01) ==
PROVIDERS: PCP Physician Assistant; Visit Provider Physician Assistant
DX: I10 Essential (primary) hypertension (principal); E78.5 Hyperlipidemia, unspecified; D64.9 Anemia, unspecified; E11.9 Type 2 diabetes mellitus without complications

== ENCOUNTER → 2024-07-22 11:06 | Outpatient (BNVA) | payer MEDICARE, MEDICAID, SELFPAY | PROVIDERS: PCP Physician Assistant; Visit Provider Physician Assistant | DX: I10 Essential (primary) hypertension (principal); E78.5 Hyperlipidemia, unspecified; D64.9 Anemia, unspecified; E11.9 Type 2 diabetes mellitus without complications | CPT/HCPCS: 99212 ==

== ENCOUNTER 2024-07-25 07:12 | Outpatient (REF) | payer MEDICARE, MEDICAID, SELFPAY ==
--- OUTSIDE RECORDS SUMMARY | 2024-07-25 07:14 | XMS_ITS | Clinical Summary ---
Author Organization [employer] Address [address] [facility] [address] [facility] [address] [place] [address] Care Team Providers Care Seo Strategist Name Role Phone Unavailable Primary Care Provider [...] 1972 DTaP/Tdap/Td Vaccines (1 - Tdap) 1973 Pneumococcal Vaccine: 50+ Ye ars (1 of 1 - PCV) 2004 Zoster Vaccines (1 of 2) 2004 COVID-19 Vaccine ( - 2023-2 5 season) [...] patient's age to complete this topic Insurance [facility] STANDARD
[2024-07-25 07:33] LABS: MANUAL DIFF FLAG NO
[2024-07-25 08:10] LABS: Basophils Percent Auto 0.1 % (0-2); Eosinophils Absolute Auto 0.1 X10*3/uL (0.0-0.4); Eosinophils Percent Auto 1.8 % (0-4); Hematocrit 36.1 % (42.0-52.0); Hemoglobin 11.5 g/dl (14.0-18.0); Imm Gran Abs Auto 0.01 X10*3/uL (0.00-0.03); Imm Gran Pct Auto 0.1 % (0.0-0.4); Lymphocytes Absolute Auto 2.9 X10*3/uL (1.2-4.9); Lymphocytes Percent Auto 42.3 % (20-40); Mean Corpuscular HGB Conc 31.9 g/dl (31.0-36.0); Mean Corpuscular Hemoglobin 26.6 pg (27.0-33.0); Mean Corpuscular Volume 83.6 fL (80.0-98.0); Mean Platelet Volume 10.4 fL (9.4-12.4); Monocytes Absolute Auto 0.4 X10*3/uL (0.1-1.2); Monocytes Percent Auto 6.4 % (2-11); Neutrophils Absolute Auto 3.4 x10*3/uL (2.0-8.3); Neutrophils Percent Auto 49.3 % (45-73); Platelet Count 202 X10*3/uL (160-400); Red Blood Count 4.32 X10*6/uL (4.60-5.80); Red Cell Distribution Width 15.1 % (11.0-16.0); White Blood Count 6.9 X10*3/uL (4.8-10.8)
[2024-07-25 08:17] LABS: Estimated Average Glucose 137 mg/dL; Hemoglobin A1c % 6.4 % (<6.0); Total Hemoglobin (HGBA1C) 3041.2068 umol/L
[2024-07-25 08:48] LABS: Alanine Aminotransferase 23 U/L (0-40); Albumin Level 4.1 g/dL (3.5-5.0); Alkaline Phosphatase 86 U/L (39-117); Anion Gap 15 (12-20); Aspartate Amino Transferase 24 U/L (5-37); Bilirubin Total 0.3 mg/dL (0.0-1.0); Blood Urea Nitrogen 21 mg/dL (9-16); Calcium 9.4 mg/dL (8.4-10.2); Carbon Dioxide 28 mmol/L (22-29); Chloride 105 mmol/L (96-108); Cholesterol 127 mg/dL (<200); Estimated Glomerular Filt Rate > 60; Glucose Random 98 mg/dL (60-115); HDL Cholesterol 28 mg/dL (>40); Iron 38 mcg/dL (45-160); LDL Cholesterol Calculated 84 mg/dL (<100); Percent Iron Saturation 15 % (15-50); Potassium 3.8 mmol/L (3.3-5.1); Sodium 144 mmol/L (135-145); Total Iron Binding Capacity 249 mcg/dL (228-428); Total Protein 8.7 g/dL (6.5-8.0); Triglycerides 75 mg/dL (<150); Unsaturated Iron Binding 211 ug/dL
[2024-07-25 09:05] LABS: Ferritin 155 ng/mL (20-250)
[2024-07-25 09:14] LABS: Folate 9.6 ng/mL (> or = 4.0); Vitamin B12 239 pg/mL (200-900)
[2024-07-26 08:47] LABS: C Peptide 2.59 ng/mL (0.80-3.85)
[2024-07-29 15:44] LABS: Glutamic acid decarboxylase Ab <5 IU/mL (<5)
[2024-07-29 22:38] LABS: Islet Cell Antibody Screen NEGATIVE (NEGATIVE)
== END 2024-07-25 07:13 | disposition home or self-care (01) ==
LOC: HO.LAB 07:12
PROVIDERS: PCP Physician Assistant; Visit Provider Physician Assistant
DX: D64.9 Anemia, unspecified (principal); E78.5 Hyperlipidemia, unspecified; I10 Essential (primary) hypertension; E11.9 Type 2 diabetes mellitus without complications
CPT/HCPCS: 36415; 80053; 80061; 82607; 82728; 82746; 83036; 83540; 84681; 85025; 86341

== ENCOUNTER 2024-08-21 14:45 | Outpatient (AMB) | payer MEDICARE, MEDICAID, SELFPAY ==
--- NOTE | 2024-08-21 14:48 | MHC.OFFVIS ---
Vital Signs 08/21/24 14:57 Height 5 ft 8 in Weight 252 lb 3.341 oz BMI 38.3 BP 148/66 H Blood Pressure Location Rt brachial Position Sitting Pulse 94 Pulse Source Pulse Oximeter Pulse Oximetry (%) 96 Oxygen Delivery Method Room Air Intake Visit Reasons: [place] scrn. Hx of SIBO/GERD? Intake Note: NEW PATIENT for initial evaluation - screening w/ prior hx. Likely 2nd lifetime recall. Cannot recall approx. date. Chief Complaint; C/O LLQ pain which radiates to the RLQ. Most prominent in the LLQ however. Pt also reports having frequent diarrhea/loose stools. Pt denies any additional concerns. Cath Lab Tech Required: No Accompanied by: Sister Allergies No Known Allergies Allergy (Verified 09/08/24 10:23) HPI HPI [place] scrn. Hx of SIBO/GERD?: Details: 68 year old? male with past medical history of diabetes, hyperlipidemia, hypertension, BPH is here today for pre colonoscopy screening.? Patient was sent to us by his PCP.? Patient had colonoscopy in the past, unsure of the results. Patient moved here few years ago from [place].? Last colonoscopy was in [place]. Reports postprandial loose stools. Left upper quadrant pain. Denies any personal or family history of gastrointestinal disease, colon polyps, or CRC.? Denies history of difficulty with sedation or anesthesia in the past.? Negative for history of sleep apnea.? Denies any history of cardiac, renal, pulmonary, or hepatic disease.?? No history of infectious? diseases like hepatitis A, B, C, HIV or tuberculosis.? Patient is not on any anticoagulation. Patient reports on omeprazole for quite some time. Reports the acid reflux is suppressed for the most part with omeprazole. Patient is also trying to avoid dietary triggers reports that he was having shortness of breath and PCP send him for exercise stress test. Patient was able to complete the test, however became very short of breath and had ST inversion in lead 3 during recovery. Recommendation was made for nuclear stress test to be completed which he will have in October. [facility] Medical History Depression Anxiety Prostate troubles Liver disease Surgical History Hx of cholecystectomy Family History Mother HTN (hypertension) Mother High cholesterol Cardiovascular disease Other FH: mental illness Social History Housing: Apartment Alcohol intake: current Comment: Holidays Patient Tobacco Use Status: Former Tobacco user Years Smoked: 19 e-Cigarette/Vaping Use: Never Used Second Hand Smoke Exposure: No Substance Use Type: Former Substance User service: No Current occupational status: disabled Cognitive needs: No Hearing needs: No Vision needs: Yes (glasses) Review of Systems Const Denies weight gain and Denies weight loss ENT Reports no additional complaints, Denies dysphagia and Denies odynophagia Card Reports no additional complaints Resp Reports no additional complaints GI Denies abdominal pain, Denies belching, Denies melena, Denies bloating, Denies change in bowel habits, Denies dysphagia, Denies excessive flatus, Denies dyspepsia, Denies heartburn, Denies diarrhea, Denies loose stools, Denies nausea, Denies odynophagia and Denies vomiting Reports no additional complaints Musc Reports no additional complaints Neuro Reports no additional complaints Psych Reports no additional complaints Endo Reports no additional complaints Physical Exam Vital Signs: Last Vital Signs Pulse 94 08/21/24 14:57 BP 148/66 H 08/21/24 14:57 Pulse Ox 96 08/21/24 14:57 Oxygen Delivery Method Room Air 08/21/24 14:57 BMI result Body Mass Index 38.3 Const General: healthy appearing and no acute distress Nutritional Appearance: obese Orientation/consciousness: patient oriented x3 Resp Effort & Inspection: normal respiratory effort, able to speak in complete sentences, no tracheal deviation and symmetric chest movement Auscultation: clear to auscultation bilaterally Cardio Rate: regular rate GI Inspection: Yes normal to inspection, No distended and Yes obesity Palpation (GI): Soft to palpation, not firm, nontender and No hepatosplenomegaly present Auscultation: normal bowel sounds General: Yes no CVA tenderness Back/Spine/Pelvis Back: no CVA tenderness Skin General skin exam: elasticity normal, turgor normal and dry skin Neuro General: patient oriented x3 Psych Appearance: grossly normal Mental Status: mental status grossly normal Assessment & Plan Assessment & Plan (1) Screen for colon cancer: Code(s): Z12.11 - Encounter for screening for malignant neoplasm of colon (2) GERD (gastroesophageal reflux disease): Code(s): K21.9 - Gastro-esophageal reflux disease without esophagitis Category: Medical Qualifiers: Esophagitis presence: esophagitis presence not specified Qualified Code(s): K21.9 - Gastro-esophageal reflux disease without esophagitis (3) Postprandial diarrhea: Code(s): K52.9 - Noninfective gastroenteritis and colitis, unspecified (4) Postprandial abdominal bloating: Code(s): R14.0 - Abdominal distension (gaseous) Plan Patient will start taking Citrucel 1-2 tablets daily. Continue omeprazole. Avoid dietary triggers late night snacking. Staying upright for minimum 3 hours after meals discussed with patient. Patient will be sent for upper endoscopy as well as for colonoscopy. Message sent to Surgical schedule to bulk procedure for patient. Will check lipase, transglutaminase, rule out malabsorption and check thyroid study. Patient will return in 2-3 months to discuss going for procedure. He is agreeable to this plan and verbalizes understanding of instructions. He was given the opportunity to ask questions and all questions answered. Thank you for allowing me to participate in his care Orders: Orders Vitamin D 25-OH (D2 and D3) 08/21/24 E55.9 - Vitamin D deficiency, unspecified TSH reflex Free T4 08/21/24 K59.00 - Constipation, unspecified Transglutaminase IgA 08/21/24 R10.9 - Unspecified abdominal pain Lipase 08/21/24 R10.9 - Unspecified abdominal pain Vitamin B12 and Folate 08/21/24 R19.7 - Diarrhea, unspecified Medications: New methylcellulose (laxative) (Citrucel) take it with full glass of water 500 mg PO DAILY 90 tabs 2RF K59.00 - Constipation, unspecified Coding Level of Care Code New Pt Level 4 (65897) Diagnoses Screen for colon cancer Z12.11 Gastroesophageal reflux disease, unspecified whether esophagitis present K21.9 Esophagitis presence: esophagitis presence not specified Postprandial diarrhea K52.9 Postprandial abdominal bloating R14.0 Time Spent (min) 45 Comment 30 minutes spent with patient and additional 15 minutes spent reviewing his records
[2024-08-21 14:57] VITALS: BP 148/66; PULSE 94; O2SAT 96; BMI 38.3
--- OUTSIDE RECORDS SUMMARY | 2024-08-21 16:55 | XMS_ITS | Clinical Summary ---
Author Organization [employer] Address [address] [facility] 7[address] [place] [address] Care Team Providers Care Custom Bow Maker Name Role Phone Unavailable Primary Care Provider Unavailabl e Encounters Date Type Department Care Team Description 08/06/2024 Telephone [facility] MEDICINE [address] [place] [address] Trell Ga MD New patient appt. from Last 3 Months Social History Tobacco Use Types Packs/Day Years [...] patient's age to complete this topic Insurance [facility] STANDARD
--- OUTSIDE RECORDS SUMMARY | 2024-08-21 16:55 | XMS_ITS | Encounter Summary ---
Author Organization [employer] Address [address] [facility] [address] [place] [address] Care Team Providers Care Service Coordinator Name Role Phone Unavailable Primary Care Provider Unavailabl e Reason for Visit * Reason Onset Date Comments New patient appt. 08/06/2024 Encounter Details Date Type Department Care Team (Late st Contact Info) Description 08/06/2024 Telephone [facility] MEDICINE [address] [place] [address] Trell Ga MD [address] [place] [address] New patient appt. Social History Tobacco Use Types Packs/Day Years Used Date Smoking Tobacco: Never Assessed Sex and Gender Information Value Date Recorded Sex Assigned at Male 02/27/2024 9:35 AM EDT Legal Sex Male 9:33 AM EDT Gender Identity Male 02/27/2024 9:35 AM EDT Sexual Orientation Not on file documented as of this encounter Miscellaneous Notes * Telephone Encounter - Megan Nino - 08/06/2024 3:41 PM EST Outgoing call to pt to book AIRCRAFT CABIN CLEANER appt. No answer. Left message. documented in this encounter Plan of Treatment Not on file documented as of this encounter Visit Diagnoses Not on filedocumented in this encounter
== END 2024-08-21 15:22 | disposition home or self-care (01) ==
PROVIDERS: PCP Physician Assistant; Visit Provider Nurse Practitioner Family
DX: K21.9 Gastro-esophageal reflux disease without esophagitis (principal); K52.9 Noninfective gastroenteritis and colitis, unspecified; Z12.11 Encounter for screening for malignant neoplasm of colon
CPT/HCPCS: 99204

== ENCOUNTER 2024-08-21 14:45 | Outpatient (REF) | payer MEDICARE, MEDICAID, SELFPAY ==
[2024-08-21 17:34] LABS: Lipase 33 U/L (8-78)
--- OUTSIDE RECORDS SUMMARY | 2024-08-21 17:34 | XMS_ITS | Encounter Summary ---
Author Organization [employer] Address [address] [facility] [address] [place] [address] Care Team Providers Care Relay Shop Supervisor Name Role Phone Unavailable Primary Care Provider Unavailabl e Reason for Visit * Reason Onset Date Comments New patient appt. 08/06/2024 Encounter Details Date Type Department Care Team (Late st Contact Info) Description 08/06/2024 Telephone [facility] MEDICINE [address] [place] [address] Trell Ga MD [address] [place] [address] New patient appt. Social History Tobacco Use [...] EST Outgoing call to pt to book FISH HATCHERY ASSISTANT appt. No answer. Left message. documented in this encounter Plan of Treatment Not on file documented as of this encounter Visit Diagnoses Not on filedocumented in this encounter
--- OUTSIDE RECORDS SUMMARY | 2024-08-21 17:34 | XMS_ITS | Clinical Summary ---
Author Organization [employer] Address [address] [facility] 7[address] [place] [address] Care Team Providers Care Master Electrician Name Role Phone Unavailable Primary Care Provider Unavailabl e Encounters Date Type Department Care Team Description 08/06/[address] [facility] MEDICINE [address] [place] [address] Trell Ga MD New patient appt. from [...] patient's age to complete this topic Insurance [facility] STANDARD
[2024-08-21 17:51] LABS: TSH reflex Free T4 3.39 uIU/mL (0.32-4.0)
[2024-08-21 18:06] LABS: Folate 10.9 ng/mL (> or = 4.0); Vitamin B12 283 pg/mL (200-900)
[2024-08-24 13:22] LABS: Transglutaminase IgA <1.0 U/mL
[2024-08-25 23:43] LABS: Vitamin D 25-OH, D2 <4 ng/mL; Vitamin D 25-OH, D3 11 ng/mL; Vitamin D 25-OH, Total 11 ng/mL (30-100)
== END 2024-08-21 14:46 | disposition home or self-care (01) ==
LOC: HO.LAB 14:45
PROVIDERS: PCP Physician Assistant; Visit Provider Nurse Practitioner Family
DX: E55.9 Vitamin D deficiency, unspecified (principal); K59.00 Constipation, unspecified; R10.9 Unspecified abdominal pain; K52.9 Noninfective gastroenteritis and colitis, unspecified; R14.0 Abdominal distension (gaseous)
CPT/HCPCS: 36415; 82306; 82607; 82746; 83690; 84443; 86364; 99202

== ENCOUNTER → 2024-09-02 20:30 | Outpatient (REF) | payer MEDICARE, MEDICAID, SELFPAY ==
--- OUTSIDE RECORDS SUMMARY | 2024-09-02 21:48 | XMS_ITS | Clinical Summary ---
Author Organization [employer] Address [address] [facility] [address] [place] [address] Care Team Providers Care Division Supervisor Name Role Phone Unavailable Primary Care Provider Unavailabl e Encounters Date Type Department Care Team Description 08/06/2024 Telephone [facility] MEDICINE [address] [place] [address] Trell Ga MD New patient appt. from [...] patient's age to complete this topic Insurance [facility] STANDARD
== END ==
LOC: HO.SL 20:30
PROVIDERS: PCP Physician Assistant; Visit Provider Physician Assistant Medical
DX: Z13.89 Encounter for screening for other disorder (principal)

== ENCOUNTER 2024-09-08 10:19 | Outpatient (AMB) | payer MEDICARE, MEDICAID, SELFPAY ==
--- NOTE | 2024-09-08 10:22 | MHC.OFFVIS ---
Vital Signs 09/08/24 10:23 Height 5 ft 8 in Weight 255 lb BMI 38.8 BP 150/80 H Blood Pressure Location Lt brachial Position Sitting Pulse 94 Pulse Source Pulse Oximeter Pulse Oximetry (%) 94 Oxygen Delivery Method Room Air Intake Visit Reasons: 3 mo follow up Intake Note: Patient presents for 3 month follow up for sleep apnea. Sleep study on file done on 07/17/24. Zipper Trimmer Required: No Accompanied by: Self / Same As Patient Allergies No Known Allergies Allergy (Verified 09/08/24 10:23) HPI Comments Details: 68 year old male referred to us by PCP for evaluation of sleep apnea. He is accompanied by his sister and SECONDARY CONNECTOR ARMATURE, he is on disability d/t Intellectual Disabilities. Jul 2024 : AHI is 4 and Oxygen Liam to 72%, will evaluate with PSG. He still has excessive daytime fatigue, yawning, falls asleep in front of the TV, difficult time falling asleep. Bedtime is at midgnight and wakes up at 7 am has 1-2 bathroom breaks. He continues to snore very loudly, wakes himself up, gasps for air, chokes with saliva and swallowing when lying down. He makes wheezing and grunting noises during wakefulness and breathing spontaneously. His memory is poor, he forgets tasks, diet is poor, eats many types of sweets or snacks during the day. He doesn't take his metformin, due to GI upset and A1c is 6.4, he forgets to take his BP meds. He c/o dizziness when walking, he misses his medication, and has difficulty with balance / gait, and he tends to bump into molina. His Mood is anxious, stressed, fearful since his mom , he thinks he will also in his sleep, misses his home in [place]. He has A/V Hallucinations, he sees his mom and people moving around, door opens by itself, pictures and jackets moving, sister is not concerned. He does not smoke, alcohol on occasions or celebrations, no MJ or edible use. [facility] Medical History Depression Anxiety Prostate troubles Liver disease Surgical History Hx of cholecystectomy Family History Mother HTN (hypertension) Mother High cholesterol Cardiovascular disease Other FH: mental illness Social History Housing: Apartment Alcohol intake: current Comment: Holidays Patient Tobacco Use Status: Former Tobacco user Years Smoked: 19 e-Cigarette/Vaping Use: Never Used Second Hand Smoke Exposure: No Substance Use Type: Former Substance User service: No Current occupational status: disabled Cognitive needs: No Hearing needs: No Vision needs: Yes (glasses) Physical Exam Vital Signs: Last Vital Signs Pulse 94 09/08/24 10:23 BP 150/80 H 09/08/24 10:23 Pulse Ox 94 09/08/24 10:23 Oxygen Delivery Method Room Air 09/08/24 10:23 BMI result Body Mass Index 38.8 Heavy set man, not wearing his glasses today. Const General: cooperative, comfortable and no acute distress Nutritional Appearance: obese Orientation/consciousness: patient oriented x3 HEENT Face and sinus: Yes normal facial exam and Yes face symmetric Teeth and gingiva: other ([place] score of 4) Eyes Pupils: Equal, round and reactive pupils present Neck Neck: Yes full ROM and Yes supple Resp Effort & Inspection: normal respiratory effort and able to speak in complete sentences Neuro General: patient oriented x3 and moves all extremities Cranial nerves: Yes Facial sensation intact/muscles of mastication intact, Yes Equal, round and reactive pupils present, Yes Normal accommodation reflex present, Yes Bilaterally intact EOM present, Yes Normal facial strength present, Yes Midline tongue present, Yes Ability to bilaterally rotate head present and Yes Ability to bilaterally elevate shoulders present Gait exam (Neuro): Ataxic gait present and Other gait observations present (Ataxic unalbe to walk heel to toe, will f/u at next visit. ) Motor exam (neuro): 5/5 motor strength present throughout and Normal motor muscle tone present throughout Results Reviewed Results Reviewed: HST Jul 2024, AHI is 4 and O2 Liam to 72, will evaluate with PSG. PSG pending. Labs Iron is low, Vit D is deficient <11, and Iron is low. Assessment & Plan Assessment & Plan (1) History of difficulty sleeping: Code(s): Z72.821 - Inadequate sleep hygiene Category: Medical (2) DUGGAN (dyspnea on exertion): Code(s): R06.09 - Other forms of dyspnea Category: Medical (3) Insomnia: Code(s): G47.00 - Insomnia, unspecified Category: Medical Qualifiers: Insomnia type: unspecified Qualified Code(s): G47.00 - Insomnia, unspecified (4) Hypertension: Code(s): I10 - Essential (primary) hypertension Category: Medical Qualifiers: Hypertension type: unspecified Qualified Code(s): I10 - Essential (primary) hypertension (5) Anemia: Code(s): D64.9 - Anemia, unspecified Category: Medical Qualifiers: Anemia type: iron deficiency Iron deficiency anemia type: inadequate dietary iron intake Qualified Code(s): D50.8 - Other iron deficiency anemias (6) Vitamin D deficiency: Code(s): E55.9 - Vitamin D deficiency, unspecified Category: Medical Plan Polysomnography results pending. Labs: Vit D deficiency, will start daily vitamin D 62.5mcg. Anemia Iron is low will start Iron 325mg PO daily with one glass of orange juice. PT Gait and Balance difficulties, Ataxic gait, unable to walk heel to toe, monitor at next f/u. BP is high today, Patient education on medication compliance as HTN is the number one modifiable risk factor for CV diseases. A1c is elevated, continue taking prescribed Metformin as directed, conversation for PCP if GI upset continues. Fatigue can be improved by eating a well balanced diet and eating more leafy green vegetables Kale, spinach and liver. Orders: Orders PT Evaluation and Treatment Today R26.89 - Other abnormalities of gait and mobility, R42 - Dizziness and giddiness Medications: New ferrous sulfate May take one tablet daily by mouth with a glass of orange juice, may hold for constipation. 325 mg PO DAILY 90 tabs 3RF anemia 90 days MDD 325mg PO D64.9 - Anemia, unspecified cholecalciferol (vitamin D3) May take one capsule by mouth daily at bedtime. 62.5 mcg PO DAILY 90 caps 3RF vitamin d deficiency 3 months MDD 62.5mcg E55.9 - Vitamin D deficiency, unspecified Patient Instructions: Polysomnography results pending. Labs: Vit D deficiency, will start daily vitamin D. Anemia Iron is low will start Iron 325mg PO daily with one glass of orange juice. PT Gait and Balance difficulties. BP is high today, Patient education on medication compliance as HTN is the number one modifiable risk factor for CV diseases. A1c is elevated, continue taking prescribed Metformin as directed, conversation for PCP if GI upset continues. Coding Level of Care Code Est Pt Level 4 (11496) Diagnoses History of difficulty sleeping Z72.821 DUGGAN (dyspnea on exertion) R06.09 Insomnia, unspecified type G47.00 Insomnia type: unspecified Hypertension, unspecified type I10 Hypertension type: unspecified Iron deficiency anemia secondary to inadequate dietary iron intake D50.8 Anemia type: iron deficiency Iron deficiency anemia type: inadequate dietary iron intake Vitamin D deficiency E55.9 Time Spent (min) 30 Comment Worsening
[2024-09-08 10:23] VITALS: BP 150/80; PULSE 94; O2SAT 94; BMI 38.8
== END 2024-09-08 11:13 | disposition home or self-care (01) ==
LOC: HO.HSMS 10:19
PROVIDERS: PCP Physician Assistant; Visit Provider Physician Assistant Medical
DX: R06.09 Other forms of dyspnea (principal); G47.00 Insomnia, unspecified; I10 Essential (primary) hypertension; D50.8 Other iron deficiency anemias; E55.9 Vitamin D deficiency, unspecified; Z72.821 Inadequate sleep hygiene
CPT/HCPCS: 99214

== ENCOUNTER → 2024-09-08 10:19 | Outpatient (BNVA) | payer MEDICARE, MEDICAID, SELFPAY | PROVIDERS: PCP Physician Assistant; Visit Provider Physician Assistant Medical | DX: G47.00 Insomnia, unspecified (principal); R06.09 Other forms of dyspnea; I10 Essential (primary) hypertension; D50.8 Other iron deficiency anemias; E55.9 Vitamin D deficiency, unspecified; Z72.821 Inadequate sleep hygiene | CPT/HCPCS: 99212 ==

== ENCOUNTER → 2024-09-09 10:06 | Outpatient (BNV) | payer MEDICARE, MEDICAID, SELFPAY | PROVIDERS: PCP Physician Assistant; Referring Provider Physician Assistant; Visit Provider Nurse Practitioner Family | DX: D64.9 Anemia, unspecified (principal) | CPT/HCPCS: 99214 ==

== ENCOUNTER 2024-10-21 10:12 | Outpatient (AMB) | payer MEDICARE, MEDICAID, SELFPAY ==
--- NOTE | 2024-10-21 10:14 | MHC.PC.OV ---
Vital Signs 10/21/24 10:21 Height 5 ft 8 in Weight 247 lb 2 oz BMI 37.6 BP 126/58 L Blood Pressure Location Rt brachial Position Sitting Respiration 16 Pulse 65 Pulse Source Pulse Oximeter Pulse Oximetry (%) 94 Oxygen Delivery Method Room Air Intake Visit Reasons: dm htn labs Intake Note: Diabetes follow up. Had chest pain yesterday. Drafter Automotive Design Required: No Accompanied by: Sister Allergies No Known Allergies Allergy (Verified 10/21/24 10:19) Medication List - Last Reconciled 10/21/24 by Catherine Nolasco PA-C ascorbic acid (vitamin C) (Vitamin C) 500 mg PO DAILY 30 days atorvastatin 40 mg PO DAILY blood sugar diagnostic (CeannateTouch Ultra Test strips) Use daily As directed to monitor blood glucose blood-glucose meter (SumoSkinnyuch Ultra2 Meter) Use daily As directed to monitor blood sugars. cholecalciferol (vitamin D3) 62.5 mcg PO DAILY 3 months MDD 62.5mcg cyanocobalamin (vitamin B-12) 1,000 mcg sublingual DAILY 30 days ferrous sulfate 325 mg PO DAILY 90 days MDD 325mg PO hydrochlorothiazide 12.5 mg PO DAILY lancets (CeannateTouch UltraSoft 2 Lancet) use daily As directed to monitor blood sugars methylcellulose (laxative) (Citrucel) 500 mg PO DAILY omeprazole 40 mg PO DAILY tamsulosin 0.4 mg PO DAILY trazodone 50 mg PO BEDTIME Tobacco use date assessed: 10/21/24 Fall risk assessment: No Falls in past year Last assessed Fall Risk: 10/21/24 Dental Screening Dental Screen Date: 10/21/24 Did you have a dental visit in the last 12 months?: Yes Did you have a dental problem in the last 6 months where you did not have access to dental care?: No Was dental information given to patient?: Patient has dentist (has a dentist but plans on switching.) HPI dm htn labs HPI Details Patient is a 68-year-old male with a significant past medical history of intellectual delay, hypertension, hyperlipidemia, GERD, insomnia, depression with anxiety, history of hep C about 10 years ago and BPH presenting today for a follow up. CV: Blood pressure today in the office is 126/58. He was recently started on lisinopril 10 mg.. Cholesterol he states it is controlled with 40 mg of atorvastatin. His last LDL was a little elevated and states he was not fasting. He gets fatigued with walking short distances with chest pressure, and sob. He recently had an abnormal stress test and a nuclear one was ordered. Has follow up arranged Cardiology. Pulm: following with sleep med for juan Endo: His A1c recently came back at 6.4 down from 6.6 with diet. However, he was at his nephew's house for the last month and he has been eating poorly. His A1c today in the office is 6.7. He is asymptomatic right now. He was prescribed metformin at our last visit but he states that he will not take this. He does not want to end up with diarrhea. He prefers to change his diet. His nephew has type 1 diabetes and was just diagnosed at the age of 30. He does not like to check blood sugars. He has not yet picked up a glucometer due to insurance issues. Uro: On Flomax 0.4 mg nightly. Control symptoms Psych: Uses trazodone p.r.n. GI: Has had follow up with GI. He is scheduled for a double endoscopy. GERD is usually controlled with the omeprazole 40 mg. Heme/onc: He is following with hematology for IgA and is currently on vitamin-D, B12 and iron. Colonoscopy: Scheduled for double endoscopy PSA: up-to-date Former smoker: smoked 18- 21 years old. States that he was only a social smoker for a few years. [facility] Medical History Depression Anxiety Prostate troubles Liver disease Surgical History Hx of cholecystectomy Family History Mother HTN (hypertension) Mother High cholesterol Cardiovascular disease Other FH: mental illness Social History (Updated 09/09/24 @ 10:14 by Rolando Collier) Household Members: Family Housing: Apartment Alcohol intake: current Comment: Holidays Patient Tobacco Use Status: Former Tobacco user Tobacco use type: Cigarette Years Smoked: 19 e-Cigarette/Vaping Use: Never Used Second Hand Smoke Exposure: No Substance Use Type: Former Substance User Current occupational status: disabled Cognitive needs: No Hearing needs: No Vision needs: Yes (glasses) Questionnaire Thrive Questionnaire Date Thrive assessed: 10/21/24 I am a: Patient What is your living situation today?: I have a steady place to live Within the past 12 months, did the food you bought not last and you didn't have the money to get more?: Never true Within the past 12 months, did you worry whether your food would run out before you got money to buy more?: Never true Do you have trouble paying for medicines?: No Do you have trouble getting transportation to medical appointments?: No Do you have trouble paying your heating and electricity bill?: No Do you have trouble taking care of your child, family member or friend?: I choose not to answer this question Do you have trouble with day-to-day activities such as bathing, preparing meals, shopping, managing finances, etc.?: Yes Are you currently unemployed and looking for a job?: No Are you interested in more education?: No Please select the resources that you would like help with: Housing/Usp Currently or been in a relationship where the following occur: No concerns reported THRIVE Score: 0 AUDIT C Alcohol Use Questionnaire (AUDIT-C) 1. How often do you have a drink containing alcohol?: Monthly or less (special occasions) 2. How many drinks containing alcohol do you have on a typical day when you are drinking?: 1 or 2 3. How often do you have six or more drinks on one occasion?: Never Total Score: 1 CARLOS ALBERTO-7 AMB Questionnaire CARLOS ALBERTO-7 Date CARLOS ALBERTO - 7 assessed: 04/02/24 Source: Developed by Drs. Tye Larsen, Maria Dolores Singleton, Lester Caballero and colleagues, with an educational uriel from [employer]. Physical exam (Primary Care) Tobacco/Smoking Status: Tobacco use Status Tobacco use date assessed 04/02/24 07/22/24 11:10 Patient Tobacco Use Status Former Tobacco user 07/22/24 11:10 Tobacco use type Cigarette 09/09/24 10:14 e-Cigarette/Vaping Use Never Used 07/22/24 11:10 Thrive Assessment: Date of Thrive Assessment Date Thrive assessed 07/01/24 09/06/24 00:53 Currently or been in a relationship where the following occur: No concerns reported Const Orientation/consciousness: patient oriented x3 HENMT Ears: hearing grossly normal bilaterally Neck Thyroid: Thyroid normal Lymphatic: no lymphadenopathy noted Resp Auscultation: clear to auscultation bilaterally Cardio Rate: regular rate Rhythm: regular rhythm Heart sounds: S1 normal heart sound present and S2 normal heart sound present GI Inspection: Yes normal to inspection Palpation (GI): Soft to palpation and Other GI palpation findings present (nontender, no cva tenderness) Auscultation: normoactive bowel sounds Rectal Exam - Male: Yes deferred Skin General skin exam: no rashes or lesions noted Neuro General: patient oriented x3, gait normal and no focal motor deficits Results AMB Hemoglobin A1c AMB Hemoglobin A1c 6.7 % Last Edit by Wendy Sebastian CMA on 10/21/24 10:35 Results Reviewed Results Reviewed: Laboratory Tests 07/25/24 08/21/24 09/09/24 07:32 15:52 11:24 WBC 6.7 RBC 4.58 L Hgb 12.3 L Hct 37.7 L Plt Count 225 Creatinine 0.90 Estimated GFR > 60 Random Glucose 98 Hemoglobin A1c % 6.4 H Iron 55 TIBC 266 % Saturation 21 Unsat Iron Binding 211 Ferritin 170 AST 24 ALT 23 Alkaline Phosphatase 86 Total Protein 8.7 H Albumin 4.1 Triglycerides 75 Cholesterol 127 LDL Cholesterol, Calc 84 HDL Cholesterol 28 L Vitamin B12 283 25-OH Vitamin D Total 11 L TSH 3.39 Coding Level of Care Code Est Pt Level 4 (13808) Complex EM visit Add On G2211 Diagnoses Vitamin D deficiency E55.9 Controlled type 2 diabetes mellitus without complication E11.9 Abnormal stress test R94.39 JOANA (iron deficiency anemia) D50.9 Hypertension, unspecified type I10 Hypertension type: unspecified Hyperlipidemia E78.5 Callus L84 Assessment & Plan Assessment & Plan (1) Vitamin D deficiency: Code(s): E55.9 - Vitamin D deficiency, unspecified Category: Medical Plan: We will recheck and start daily supplement (2) Controlled type 2 diabetes mellitus without complication: Code(s): E11.9 - Type 2 diabetes mellitus without complications Category: Medical Plan: Diet controlled. Last A1c is 6.7 today. States that his diet has not been as great over the last month but he plans to improve it. He does not want to take medication (3) Abnormal stress test: Code(s): R94.39 - Abnormal result of other cardiovascular function study Category: Medical Plan: Scheduled for stress test in October (4) JOANA (iron deficiency anemia): Code(s): D50.9 - Iron deficiency anemia, unspecified Category: Medical Plan: On iron. We will monitor (5) Hypertension: Code(s): I10 - Essential (primary) hypertension Category: Medical Qualifiers: Hypertension type: unspecified Qualified Code(s): I10 - Essential (primary) hypertension Plan: WNL. Continue current regimen (6) Hyperlipidemia: Code(s): E78.5 - Hyperlipidemia, unspecified Category: Medical Plan: Continue current regimen. Lipids and LFTs ordered. (7) Callus: Code(s): L84 - Corns and callosities Category: Medical Plan: ref to podiatry Orders: Orders Microalbumin, Random (w Creat) Today D50.9 - Iron deficiency anemia, unspecified, E11.9 - Type 2 diabetes mellitus without complications, E55.9 - Vitamin D deficiency, unspecified, R94.39 - Abnormal result of other cardiovascular function study Complete Blood Count Auto Diff Today D50.9 - Iron deficiency anemia, unspecified, E11.9 - Type 2 diabetes mellitus without complications, E55.9 - Vitamin D deficiency, unspecified, R94.39 - Abnormal result of other cardiovascular function study Vitamin B12 and Folate Today D50.9 - Iron deficiency anemia, unspecified, E55.9 - Vitamin D deficiency, unspecified Vitamin D 25-OH Total Today D50.9 - Iron deficiency anemia, unspecified, E55.9 - Vitamin D deficiency, unspecified Comprehensive [place]. Panel Fast Today D50.9 - Iron deficiency anemia, unspecified, E11.9 - Type 2 diabetes mellitus without complications, E55.9 - Vitamin D deficiency, unspecified, R94.39 - Abnormal result of other cardiovascular function study Lipid Panel Today D50.9 - Iron deficiency anemia, unspecified, E11.9 - Type 2 diabetes mellitus without complications, E55.9 - Vitamin D deficiency, unspecified, R94.39 - Abnormal result of other cardiovascular function study TSH reflex Free T4 Today D50.9 - Iron deficiency anemia, unspecified, E11.9 - Type 2 diabetes mellitus without complications, E55.9 - Vitamin D deficiency, unspecified, R94.39 - Abnormal result of other cardiovascular function study AMB Hemoglobin A1c Today E11.9 - Type 2 diabetes mellitus without complications Referrals Podiatry Referral E11.9 - Type 2 diabetes mellitus without complications, L84 - Corns and callosities Medications: Refilled blood sugar diagnostic (OneTouch Ultra Test strips) Use daily As directed to monitor blood glucose 100 ea 3RF E11.9 - Type 2 diabetes mellitus without complications blood-glucose meter (OneTouch Ultra2 Meter) Use daily As directed to monitor blood sugars. 1 ea 0RF lancets (OneTouch UltraSoft 2 Lancet) use daily As directed to monitor blood sugars 100 ea 2RF E11.9 - Type 2 diabetes mellitus without complications
[2024-10-21 10:21] VITALS: BP 126/58; PULSE 65; RESP 16; O2SAT 94; BMI 37.6
--- OUTSIDE RECORDS SUMMARY | 2024-10-21 11:19 | XMS_ITS | Clinical Summary ---
Author Organization [employer] Address [address] [facility] [address] [place] [address] Care Team Providers Care Licensed Insurance Sales Agent Name Role Phone Unavailable Primary Care Provider Unavailabl e Encounters Date Type Department Care Team Description 08/06/2024 Telephone [facility] MEDICINE [address] [place] [address] Trell Ga MD New patient appt. from [...] patient's age to complete this topic Insurance [facility] STANDARD
== END 2024-10-21 10:40 | disposition home or self-care (01) ==
LOC: HO.HMCFM 10:13
PROVIDERS: PCP Physician Assistant; Visit Provider Physician Assistant
DX: E55.9 Vitamin D deficiency, unspecified (principal); E11.9 Type 2 diabetes mellitus without complications; R94.39 Abnormal result of other cardiovascular function study; D50.9 Iron deficiency anemia, unspecified; I10 Essential (primary) hypertension; E78.5 Hyperlipidemia, unspecified; L84 Corns and callosities

== ENCOUNTER → 2024-10-21 10:12 | Outpatient (BNVA) | payer MEDICARE, MEDICAID, SELFPAY | PROVIDERS: PCP Physician Assistant; Visit Provider Physician Assistant | DX: E55.9 Vitamin D deficiency, unspecified (principal); E11.9 Type 2 diabetes mellitus without complications; R94.39 Abnormal result of other cardiovascular function study; D50.9 Iron deficiency anemia, unspecified; I10 Essential (primary) hypertension; E78.5 Hyperlipidemia, unspecified; L84 Corns and callosities | CPT/HCPCS: 83036; 99212 ==

== ENCOUNTER 2024-10-21 10:50 | Outpatient (REF) | payer MEDICARE, MEDICAID, SELFPAY ==
--- OUTSIDE RECORDS SUMMARY | 2024-10-21 12:17 | XMS_ITS | Clinical Summary ---
Author Organization [employer] Address [address] [facility] [address]t [place] [address] Care Team Providers Care Brilliandeer Looper Name Role Phone Unavailable Primary Care Provider Unavailabl e Encounters Date Type Department Care Team Description 08/06/2024 Telephone [facility] MEDICINE [address] [place] [address] Trell Ga MD New patient appt. from [...] patient's age to complete this topic Insurance [facility] STANDARD
[2024-10-21 14:23] LABS: MANUAL DIFF FLAG NO
[2024-10-21 14:27] LABS: Basophils Percent Auto 0.2 % (0-2); Eosinophils Absolute Auto 0.1 X10*3/uL (0.0-0.4); Eosinophils Percent Auto 1.5 % (0-4); Hematocrit 37.1 % (42.0-52.0); Hemoglobin 11.9 g/dl (14.0-18.0); Imm Gran Abs Auto 0.01 X10*3/uL (0.00-0.03); Imm Gran Pct Auto 0.2 % (0.0-0.4); Lymphocytes Absolute Auto 2.1 X10*3/uL (1.2-4.9); Lymphocytes Percent Auto 35.4 % (20-40); Mean Corpuscular HGB Conc 32.1 g/dl (31.0-36.0); Mean Corpuscular Volume 84.3 fL (80.0-98.0); Mean Platelet Volume 10.9 fL (9.4-12.4); Monocytes Absolute Auto 0.4 X10*3/uL (0.1-1.2); Monocytes Percent Auto 7.3 % (2-11); Neutrophils Absolute Auto 3.3 x10*3/uL (2.0-8.3); Neutrophils Percent Auto 55.4 % (45-73); Platelet Count 217 X10*3/uL (160-400); Red Cell Distribution Width 15.1 % (11.0-16.0); White Blood Count 5.9 X10*3/uL (4.8-10.8)
[2024-10-21 14:47] LABS: Creatinine Urine 332.99 mg/dL
[2024-10-21 15:00] LABS: Alanine Aminotransferase 24 U/L (0-40); Alkaline Phosphatase 84 U/L (39-117); Anion Gap 12 (12-20); Aspartate Amino Transferase 25 U/L (5-37); Bilirubin Total 0.3 mg/dL (0.0-1.0); Blood Urea Nitrogen 20 mg/dL (9-16); Calcium 9.9 mg/dL (8.4-10.2); Carbon Dioxide 31 mmol/L (22-29); Chloride 102 mmol/L (96-108); Cholesterol 156 mg/dL (<200); Estimated Glomerular Filt Rate > 60; Glucose Fasting 123 mg/dL (60-99); Glucose Random 121 mg/dL (60-115); HDL Cholesterol 35 mg/dL (>40); LDL Cholesterol Calculated 96 mg/dL (<100); Potassium 3.4 mmol/L (3.3-5.1); Sodium 142 mmol/L (135-145); Total Protein 8.2 g/dL (6.5-8.0); Triglycerides 128 mg/dL (<150)
[2024-10-21 15:01] LABS: TSH reflex Free T4 2.39 uIU/mL (0.32-4.0); Vitamin D 25-OH Total 34.6 ng/mL (>30)
[2024-10-21 15:13] LABS: Folate 10.7 ng/mL (> or = 4.0); Vitamin B12 277 pg/mL (200-900)
[2024-10-23 15:59] LABS: Beta-2 Microglobulin, Serum 2.22 mg/L (< OR = 2.51)
[2024-10-26 09:54] LABS: Kappa Light Chain, Free Serum 16.9 mg/L (3.3-19.4); Kappa/Lambda Lt Ch Free Ratio 0.19 (0.26-1.65); Lambda Light Chain, Free Serum 89.3 mg/L (5.7-26.3)
== END 2024-10-21 10:51 | disposition home or self-care (01) ==
LOC: HO.WFDLDS 10:50
PROVIDERS: Referring Provider Nurse Practitioner Family; Visit Provider Physician Assistant
DX: E55.9 Vitamin D deficiency, unspecified (principal); E11.9 Type 2 diabetes mellitus without complications; R94.39 Abnormal result of other cardiovascular function study; D50.9 Iron deficiency anemia, unspecified; I10 Essential (primary) hypertension; E78.5 Hyperlipidemia, unspecified; L84 Corns and callosities; N40.0 Benign prostatic hyperplasia without lower urinary tract symptoms; Z79.899 Other long term (current) drug therapy; D47.2 Monoclonal gammopathy
CPT/HCPCS: 36415; 80053; 80061; 82043; 82232; 82306; 82570; 82607; 82746; 83036; 83521; 84443; 85025; 99212

== ENCOUNTER 2024-10-22 | Outpatient (REF) | payer MEDICARE, MEDICAID, SELFPAY ==
--- OUTSIDE RECORDS SUMMARY | 2024-10-26 16:06 | XMS_ITS | Clinical Summary ---
Author Organization [employer] Address [address] [facility] [address] [place] [address] Care Team Providers Care Food Expeditor Name Role Phone Unavailable Primary Care Provider Unavailabl e Encounters Date Type Department Care Team Description 08/06/2024 Telephone [facility] MEDICINE [address] [place] [address] Trell Ga MD New patient appt. from [...] patient's age to complete this topic Insurance [facility] STANDARD
== END 2024-10-22 00:01 | disposition home or self-care (01) ==
LOC: HO.LNP
PROVIDERS: Visit Provider Nurse Practitioner Family
DX: Z13.89 Encounter for screening for other disorder (principal)

== ENCOUNTER → 2024-10-23 09:59 | Outpatient (REF) | payer MEDICARE, MEDICAID, SELFPAY | LOC: HO.CARD 09:59 | PROVIDERS: PCP Physician Assistant; Visit Provider Physician Assistant | DX: Z13.89 Encounter for screening for other disorder (principal) ==